=== PATIENT | female | born 1940 | race Caucasian/White ===

== ENCOUNTER → 2024-02-20 07:51 | Outpatient (REF) | payer OTHER, SELFPAY | LOC: RAD 07:51 | PROVIDERS: ATTENDING PHYSICIAN Nurse Practitioner Adult Health; REFERRING PHYSICIAN Internal Medicine Hematology & Oncology | DX: I77.9 Disorder of arteries and arterioles, unspecified (principal); R09.89 Other specified symptoms and signs involving the circulatory and respiratory systems | CPT/HCPCS: 76770; 93880 ==

== ENCOUNTER → 2024-03-09 11:03 | Outpatient (REF) | payer OTHER, SELFPAY ==
[2024-03-09 12:12] LABS: Blood Urea Nitrogen 17 mg/dl (7-17); Calcium 10.3 mg/dl (8.4-10.2); Carbon Dioxide 25 mmol/L (22-30); Chloride 111 mmol/L (98-107); Glucose 45 mg/dl (70-99); Potassium 4.1 mmol/L (3.5-5.1); Sodium 141 mmol/L (135-145); eGFR > 60.00
== END ==
LOC: REG 11:03
PROVIDERS: ATTENDING PHYSICIAN Surgery Vascular Surgery; FAMILY PHYSICIAN Family Medicine
DX: I65.29 Occlusion and stenosis of unspecified carotid artery (principal)
CPT/HCPCS: 36415; 80048

== ENCOUNTER → 2024-03-16 09:44 | Outpatient (REF) | payer OTHER, SELFPAY | LOC: RAD 09:44 | PROVIDERS: ATTENDING PHYSICIAN Surgery Vascular Surgery; FAMILY PHYSICIAN Nurse Practitioner Adult Health | DX: I65.29 Occlusion and stenosis of unspecified carotid artery (principal) | CPT/HCPCS: 70496; 70498; Q9967 ==

== ENCOUNTER → 2024-10-04 08:10 | Outpatient (REF) | payer OTHER, SELFPAY | LOC: RAD 08:10 | PROVIDERS: ATTENDING PHYSICIAN Surgery Vascular Surgery; FAMILY PHYSICIAN Physician Assistant | DX: I73.9 Peripheral vascular disease, unspecified (principal); I65.29 Occlusion and stenosis of unspecified carotid artery | CPT/HCPCS: 93880; 93922; 93925 ==

== ENCOUNTER → 2024-10-14 08:05 | Outpatient (REF) | payer OTHER, SELFPAY | LOC: PET 08:05 | PROVIDERS: ATTENDING PHYSICIAN Internal Medicine Hematology & Oncology | DX: C34.80 Malignant neoplasm of overlapping sites of unspecified bronchus and lung (principal) | CPT/HCPCS: 78815; A9552 ==

== ENCOUNTER → 2025-01-17 07:42 | Outpatient (REF) | payer OTHER, SELFPAY | LOC: HWRAD 07:42 | PROVIDERS: ATTENDING PHYSICIAN Internal Medicine Hematology & Oncology; FAMILY PHYSICIAN Internal Medicine; REFERRING PHYSICIAN Internal Medicine Critical Care Medicine | DX: C34.80 Malignant neoplasm of overlapping sites of unspecified bronchus and lung (principal); C79.31 Secondary malignant neoplasm of brain | CPT/HCPCS: 71250 ==

== ENCOUNTER 2025-03-02 12:12 | Inpatient (IN) | payer OTHER, SELFPAY ==
[2025-03-02] VITALS (67 sets, daily range): BP systolic 41–146; BP diastolic 23–99; PULSE 2–126; BMI 24.2
--- NOTE | 2025-03-02 08:44 | EDRN ---
the pt was received from the waiting room and was 78% on RA, this RN placed the pt on 6L NC and the pt is now 99%, provider Arvin CAPPS notified
[2025-03-02 08:49] LABS: % Basophils 0.7 % (0-2); % Eosinophils 1.2 % (0-6); % Immature Granulocytes 0.2 % (0-0.5); % Lymphocytes 25.1 % (20.5-51.1); % Neutrophils 65.8 % (42.2-75.2); Absolute Basophils 0.1 10^3/uL (0-0.2); Absolute Eosinophils 0.1 10^3/uL (0-0.7); Absolute Lymphocytes 2.2 10^3/uL (1.2-3.4); Absolute Monocytes 0.6 10^3/uL (0.1-0.6); Absolute Neutrophils 5.8 10^3/uL (1.4-6.5); Hematocrit 42.4 % (37.0-47.0); Hemoglobin 14.1 g/dL (12.0-16.0); Mean Corp Hgb Conc. 33.3 g/dL (33.0-37.0); Mean Corpuscular Hgb 31.5 pg (27.0-31.0); Mean Corpuscular Volume 94.6 fL (81.0-99.0); Mean Platelet Volume 10.9 fL (7.4-10.4); Nucleated Red Blood Cells % 0 %; Platelet Count 204 10^3/uL (130-400); Red Blood Cell Count 4.48 10^6/uL (4.20-5.40); Red Cell Dist. Width 14.8 % (11.5-14.5); White Blood Cell Count 8.8 10^3/uL (4.8-10.8)
--- NOTE | 2025-03-02 08:55 | EDRN ---
Arvin CAPPS currently at the pts bedside
[2025-03-02 08:56] LABS: Venous Blood Gas B.E. 0.2 mmol/L (-4 to +4); Venous Blood Gas HCO3 27.3 mmol/L (22-27); Venous Blood Gas O2 Sat % 74.6 %; Venous Blood Gas pCO2 53 mmHg (35-48); Venous Blood Gas pH 7.32 (7.32-7.43); Venous Blood Gas pO2 46 mmHg (30-50)
--- NOTE | 2025-03-02 09:09 | ED.GENMED ---
History of Present Illness
<Som Reyes PA-C - Last Filed: 03/06/25 06:08>
General
Chief Complaint: Breathing Problem
Source: patient
Exam Limitations: none
Time Seen by Provider: 03/02/25 08:27
History of Present Illness
History of Present Illness:
85-year-old female with history of COPD presents with worsening shortness of breath and increased work of breathing over the past 3 to 4 days. She has not been on oxygen but has been forced to use some at home. She denies chest pain. She denies
leg swelling or weight gain. No fever or significant cough. No vomiting. No other complaints at this time
Past History
<GAVIN Carreno Last Filed: 03/06/25 06:08>
Past History
ED Past Medical History: Cancer (lung CA, radiation 2018, chemo early 2019 and has been doing well since.), HTN and Hypercholesterolemia
ED Past Surgical History: None
Social History
Tobacco: Former smoker
Personal:
Living: with family
Family History
Family History: Negative Early CAD
Phy Exam
<GAVIN Carreno Last Filed: 03/06/25 06:08>
Physical Exam
Physical Exam:
General: Well-appearing female with increased work of breathing
HEENT: Normocephalic atraumatic
Heart: Regular rate and rhythm
Lungs: Breath sounds slightly distant and subtle Rales noted at the base
Abdomen is soft nontender nondistended
Extremities: No cyanosis or edema
Skin: Warm no rash
Scores
<GAVIN Carreno Last Filed: 03/06/25 06:08>
Heart Failure Risk
Heart Failure Risk Score: Not Applicable
Course
<GAVIN Carreno Last Filed: 03/06/25 06:08>
Orders/Labs/Results
Orders:
Orders
03/02/25 08:33
CXR2 [CR Chest - 2 Views ] Urgent
Comment:
Reason For Exam: shortness of breath
03/02/25 08:41
EKG [Electrocardiogram (*1)] Urgent
Reason for Study: Shortness of Breath
EKG- Treatment ONCE
03/02/25 08:42
Complete Blood Count/With Diff Urgent
Comprehensive Metabolic Panel Urgent
Direct Bilirubin Urgent
Comment: ADD ON
LDH Urgent
Comment: ADD ON
NT-proBNP Urgent
TSH Reflex To Free T4 Urgent
Comment: ADD ON
Troponin I Urgent
Venous Blood Gas Urgent
%Oxygen/Room Air: 100% on RA
03/02/25 08:58
Ipratropium/Albuterol Sulfate [Duoneb] 3 ml INH R NOW STA
03/02/25 09:28
CT Chest PE Study Urgent
Comment:
Reason For Exam: sob
03/02/25 09:29
Dextrose 50%-Water [Dextrose 50% Syringe] 25 grams IV NOW STA
03/02/25 10:55
Furosemide [Lasix] 100 mg .ROUTE .STK-MED ONE
03/02/25 10:59
Furosemide [Lasix] 60 mg IV NOW STA
03/02/25 11:05
Nitroglycerin 100 mg/250 ml [Nitroglycerin Premix] 100 mg in 250 ml .ROUTE .STK-MED
03/02/25 11:15
Nitroglycerin 100 mg/250 ml [Nitroglycerin Premix] 100 mg in 250 ml IV PER PROTOCOL
Initial dose in mcg/min, then titrate:: 50
Titrate to keep:: Chest Pain Free
Titrate by mcg/min:: 5 mcg/min, may increase by 10 mcg/min if dose > 20 mcg/min
Frequency of titrations (minutes):: every 3-5 minutes
Maximum dose in mcg/min:: 200
Begin to taper infusion when:: Remained at goal for 2hrs
Taper by mcg/min:: 5 mcg/min
Frequency of taper (minutes) if patient maintains goal:: 30
Taper to off?: Yes
If infusion off & no longer maintaining goal:: Contact Provider
03/02/25 11:20
EKG [Electrocardiogram (*1)] Urgent
Reason for Study: Bradycardia / Tachycardia
EKG- Treatment ONCE
CXR [CR Chest Portable - 1 View] Urgent
Comment:
Reason For Exam: post intubation
Reason Study Needs to be Portable: Patient Unstable
03/02/25 11:22
Fentanyl Citrate/Pf [Sublimaze] 100 mcg .ROUTE .STK-MED ONE
Propofol 1,000,000 Mcg/100 ml [Diprivan] 1,000,000 mcg in 100 ml .ROUTE .STK-MED
03/02/25 11:27
Fentanyl Citrate/Pf [Sublimaze] 75 mcg IV NOW STA
03/02/25 11:30
CR Chest Portable - 1 View Urgent
Comment:
Reason For Exam: tube placement
Reason Study Needs to be Portable: Patient Unstable
03/02/25 11:44
Fentanyl Citrate/Pf [Sublimaze] 100 mcg .ROUTE .STK-MED ONE
Fentanyl Citrate/Pf [Sublimaze] 50 mcg IV [id number] PRN
03/02/25 11:45
FentaNYL 1,000 MCG/100 ML [Sublimaze] 1,000 mcg in 100 ml IV PER PROTOCOL
Indication:: Deep Sedation
Begin Infusion:: Now
Goal:: RASS </= -3, BIS 40-60, ventilator synchrony
Maximum dose in mcg/hr:: 300
Continue currently infusing dose and titrate:: Yes
Titration Instructions:: Titrate Q30 min until ventilator synchrony, RASS or BIS goal is met.
Titration Instructions:: If RASS >/= -2 or BIS > 60 or ventilator dyssynchrony:
Titration Instructions:: administer bolus dose and increase infusion by 25 mcg/hr.
Titration Instructions:: Administer analgesia bolus dose(s) & titrate analgesia prior to
Titration Instructions:: adjusting sedation.
Over-sedation Instructions:: if BIS < 40 and pt is synchronous with ventilator, decrease infusion by
Over-sedation Instructions:: 25 mcg/hr every 2 hours until BIS = 40-60.
Over-sedation Instructions:: Do not wean infusion to off if patient is receiving a continuous NMBA or
Over-sedation Instructions:: has received a bolus dose of NMBA within the past 3 hours.
Notify provider:: immediately if pt exhibits signs/symptoms of chest wall rigidity,
Notify provider:: hemodynamic instability, or agitation/pain despite maximum dosing.
Additional Instructions:: Patient MUST be mechanically ventilated.
NORepinephrine 4 MG/250 ML [Levophed] 4 mg in 250 ml IV PER PROTOCOL
Initial dose in mcg/min, then titrate:: 5
Titrate to keep:: MAP > 65 mmHg
Titrate by mcg/min:: 1-2 mcg/min
Frequency of titrations (minutes):: 5
Maximum dose in ICU in mcg/min:: 30
Maximum dose in IMU in mcg/min:: 8
Maximum dose in IVU in mcg/min:: 4
Begin to taper infusion when:: Remained at goal for 4hrs
Taper by mcg/min:: 1-2 mcg/min
Frequency of taper (minutes) if patient maintains goal:: 30
Taper to off?: Yes
If infusion off & no longer maintaining goal:: Contact Provider
03/02/25 11:47
CARDIOLOGY CONSULT Urgent
Consulting Provider: Elijah Murray
Was physician already notified: Yes
Reason for consult: CHF
Milling Planer Operator Consult Urgent
Consulting Provider: Ilan Hayes
Was physician already notified: Yes
Reason for consult: acute respiratory failure
03/02/25 11:49
FentaNYL 1,000 MCG/100 ML [Sublimaze] 1,000 mcg in 100 ml .ROUTE .STK-MED
03/02/25 11:58
Echo 2D MMode Color/Doppler Stat
Reason for Study: cardiogenic shock
Aspirin 300 mg RECTAL NOW STA
Heparin Protocol- PTT Orders As Directed
PTT per Heparin protocol: -Obtain CBC and baseline PTT - if not already collected.
-Obtain PTT 6 hours from start of infusion. Then, every 6 hours until 2 consecutive
PTT's are therapeutic. Then, PTT Daily.
-With each rate change, obtain PTT every 6 hours until 2 consecutive PTT's are
therapeutic. Then, PTT Daily.
03/02/25 11:59
Code Status As Directed
Resuscitation Status: Full Code
Dextrose 50%-Water [Dextrose 50% Syringe] 12.5 grams IV [id number] PRN
Glucagon [GlucaGen] 1 mg IM PRN PRN
03/02/25 12:00
HF DIETARY CONSULT Routine
Dextrose 10%/Water 1000 ml [D10w] 1,000 ml IV 30 mls/hr
Fentanyl Citrate/Pf [Sublimaze] 50 mcg IV [id number] PRN
Heparin 18774 Units/250 ml 25,000 units in 250 ml IV PER PROTOCOL
Weight to be used for heparin protocol in kilograms (kg):: 58.06
Protocol:: Cardiac Tx/Acute Coronary
PTT Goal Range to be used:: PTT 73 to 111 seconds
Order type:: Initial
INITIAL Infusion Dose (UNITS/KG/hr) & then follow protocol:: 12 units/kg/hr
Infusion Dose in UNITS/hr & then follow protocol (UNITS/hr):: 700
INFUSION RATE in mL/hr & then follow protocol (mL/hr):: 7
PTT less than or equal to 64 seconds:: Increase rate by 200 units/hr (+ 2 mL/hr)
PTT 64.1 to 72.9 seconds:: Increase rate by 100 units/hr (+ 1 mL/hr)
PTT 73 to 111 seconds:: Target Range. No change in rate.
PTT 111.1 to 130.9 seconds:: Decrease rate by 100 units/hr (- 1 mL/hr)
PTT 131 to 199.9 seconds:: HOLD for 1 hr. Then decrease rate by 200 units/hr (- 2 mL/hr)
PTT greater than or equal to 200 seconds:: HOLD for 2 hrs & Notify Provider. Then decrease by 200 units/hr (-
2 mL/hr)
Lab follow-up:: Each change, PTT q6h until 2 consecutive are therapeutic. Then PTT
daily.
Propofol 1,000,000 Mcg/100 ml [Diprivan] 1,000,000 mcg in 100 ml IV PER PROTOCOL
03/02/25 12:02
Admit/Transfer Patient As Directed
Co-Sign Provider:
Level of Care: Inpatient admission
Assign to:: ICU
Physician / Group: Hospitalist
Diagnosis: CHF, NSTEMI
Reason for Hospitalization: CHF, NSTEMI
Expected length of stay greater than two midnights?: Yes
ELOS- Estimated Length of Stay in days: 5
I certify the patient meets the requirements for IP care: Yes
Complete Blood Count/No Diff Urgent
Comment: Obtain baseline before beginning heparin infusion if not already collected
Glycohemoglobin (HgbA1c) Urgent
PTT Urgent
Comment: Obtain baseline before beginning heparin infusion if not already collected
Prothrombin Time Urgent
Comment: ADD ON
Reticulocyte Count Urgent
Comment: ADD ON
PRN Pain Medication Management As Directed
May give lesser potent ordered pain med per pt: Yes
preference::
Protocol:: Medication orders for pain may be administered in a
manner that supports deferring to patient preference
when the pt is:
- Requesting an ordered lesser potent pain medication.
Least to most potent pain medications are defined
as: acetaminophen < NSAID < tramadol < opioids
(morphine, oxycodone, hydromorphone).
- Requesting a lesser dose of the same medication IF
ORDERED.
- Requesting a less intrusive route of administration
if both routes are prescribed by the provider (PO <
IV).
03/02/25 12:07
MethylPREDNISolone PF [Solu-Medrol Pf] 125 mg IV NOW STA
03/02/25 14:00
Lactic Acid Q6H
Troponin I Q6H
Comment: at admission & every 6 hours x 2 (3 total), ECG to be done with each level
03/02/25 16:00
Furosemide [Lasix] 40 mg IV BID AT 0800,1600
03/02/25 16:30
Insulin Aspart Corrective Low [Novolog Flexpen-Low Resistance] See Protocol SC AC
03/02/25 17:55
Troponin I Q6H
Comment: at admission & every 6 hours x 2 (3 total), ECG to be done with each level
03/02/25 20:00
Atorvastatin [Lipitor] 40 mg TUBE DAILY@1999
03/03/25 00:18
Troponin I Q6H
Comment: at admission & every 6 hours x 2 (3 total), ECG to be done with each level
03/03/25 03:12
Cardiovascular Evaluation IN AM
Complete Blood Count/With Diff IN AM
Hepatitis B Core Ab, Total IN AM
Hepatitis B Surface Antibody IN AM
Hepatitis B Surface Antigen IN AM
Hepatitis C Antibody IN AM
03/03/25 08:00
Aspirin Chewable [Low Strength Aspirin] 81 mg TUBE DAILY
Abnormal Lab Results
03/02/25 03/02/25
08:42 12:02
RBC 4.17 L 10^6/uL
(4.20-5.40)
MCH 31.5 H pg 31.2 H pg
(27.0-31.0) (27.0-31.0)
MCHC 32.8 L g/dL
(33.0-37.0)
RDW 14.8 H % 15.0 H %
(11.5-14.5) (11.5-14.5)
MPV 10.9 H fL 10.8 H fL
(7.4-10.4) (7.4-10.4)
VBG pCO2 53 H mmHg
(35-48)
VBG HCO3 27.3 H mmol/L
(22-27)
Sodium 146 H mmol/L
(135-145)
Chloride 109 H mmol/L
(98-107)
BUN 31 H mg/dl
(7-17)
Glucose 51 L* mg/dl
(70-99)
Total Bilirubin 2.3 H mg/dl
(0.2-1.3)
AST 78 H U/L
(14-36)
Lactate Dehydrogenase 361 H U/L
(120-246)
Troponin I 5.170 H* ng/ml
03/02/25 12:02
03/02/25 08:42
Vital Signs
Initial and Last Documented VS:
Initial Vital Signs
Temp Pulse Resp BP Pulse Ox
97.8 F 102 20 146/59 97
03/02/25 08:07 03/02/25 08:07 03/02/25 08:07 03/02/25 08:07 03/02/25 08:07
Last Documented Vital Signs
Temp Pulse Resp BP Pulse Ox
99.5 F 81 15 128/52 99
03/04/25 12:01 03/04/25 11:00 03/04/25 11:00 03/04/25 10:06 03/04/25 11:00
<DO Pancho Ellis Last Filed: 03/02/25 11:25>
Orders/Labs/Results
Orders:
Orders
03/02/25 08:33
CXR2 [CR Chest - 2 Views ] Urgent
Comment:
Reason For Exam: shortness of breath
03/02/25 08:41
EKG [Electrocardiogram (*1)] Urgent
Reason for Study: Shortness of Breath
EKG- Treatment ONCE
03/02/25 08:42
Complete Blood Count/With Diff Urgent
Comprehensive Metabolic Panel Urgent
Direct Bilirubin Urgent
Comment: ADD ON
LDH Urgent
Comment: ADD ON
NT-proBNP Urgent
TSH Reflex To Free T4 Urgent
Comment: ADD ON
Troponin I Urgent
Venous Blood Gas Urgent
%Oxygen/Room Air: 100% on RA
03/02/25 08:58
Ipratropium/Albuterol Sulfate [Duoneb] 3 ml INH R NOW STA
03/02/25 09:28
CT Chest PE Study Urgent
Comment:
Reason For Exam: sob
03/02/25 09:29
Dextrose 50%-Water [Dextrose 50% Syringe] 25 grams IV NOW STA
03/02/25 10:55
Furosemide [Lasix] 100 mg .ROUTE .STK-MED ONE
03/02/25 10:59
Furosemide [Lasix] 60 mg IV NOW STA
03/02/25 11:05
Nitroglycerin 100 mg/250 ml [Nitroglycerin Premix] 100 mg in 250 ml .ROUTE .STK-MED
03/02/25 11:15
Nitroglycerin 100 mg/250 ml [Nitroglycerin Premix] 100 mg in 250 ml IV PER PROTOCOL
Initial dose in mcg/min, then titrate:: 50
Titrate to keep:: Chest Pain Free
Titrate by mcg/min:: 5 mcg/min, may increase by 10 mcg/min if dose > 20 mcg/min
Frequency of titrations (minutes):: every 3-5 minutes
Maximum dose in mcg/min:: 200
Begin to taper infusion when:: Remained at goal for 2hrs
Taper by mcg/min:: 5 mcg/min
Frequency of taper (minutes) if patient maintains goal:: 30
Taper to off?: Yes
If infusion off & no longer maintaining goal:: Contact Provider
03/02/25 11:20
EKG [Electrocardiogram (*1)] Urgent
Reason for Study: Bradycardia / Tachycardia
EKG- Treatment ONCE
CXR [CR Chest Portable - 1 View] Urgent
Comment:
Reason For Exam: post intubation
Reason Study Needs to be Portable: Patient Unstable
03/02/25 11:22
Fentanyl Citrate/Pf [Sublimaze] 100 mcg .ROUTE .STK-MED ONE
Propofol 1,000,000 Mcg/100 ml [Diprivan] 1,000,000 mcg in 100 ml .ROUTE .STK-MED
03/02/25 11:27
Fentanyl Citrate/Pf [Sublimaze] 75 mcg IV NOW STA
03/02/25 11:30
CR Chest Portable - 1 View Urgent
Comment:
Reason For Exam: tube placement
Reason Study Needs to be Portable: Patient Unstable
03/02/25 11:44
Fentanyl Citrate/Pf [Sublimaze] 100 mcg .ROUTE .STK-MED ONE
Fentanyl Citrate/Pf [Sublimaze] 50 mcg IV [id number] PRN
03/02/25 11:45
FentaNYL 1,000 MCG/100 ML [Sublimaze] 1,000 mcg in 100 ml IV PER PROTOCOL
Indication:: Deep Sedation
Begin Infusion:: Now
Goal:: RASS </= -3, BIS 40-60, ventilator synchrony
Maximum dose in mcg/hr:: 300
Continue currently infusing dose and titrate:: Yes
Titration Instructions:: Titrate Q30 min until ventilator synchrony, RASS or BIS goal is met.
Titration Instructions:: If RASS >/= -2 or BIS > 60 or ventilator dyssynchrony:
Titration Instructions:: administer bolus dose and increase infusion by 25 mcg/hr.
Titration Instructions:: Administer analgesia bolus dose(s) & titrate analgesia prior to
Titration Instructions:: adjusting sedation.
Over-sedation Instructions:: if BIS < 40 and pt is synchronous with ventilator, decrease infusion by
Over-sedation Instructions:: 25 mcg/hr every 2 hours until BIS = 40-60.
Over-sedation Instructions:: Do not wean infusion to off if patient is receiving a continuous NMBA or
Over-sedation Instructions:: has received a bolus dose of NMBA within the past 3 hours.
Notify provider:: immediately if pt exhibits signs/symptoms of chest wall rigidity,
Notify provider:: hemodynamic instability, or agitation/pain despite maximum dosing.
Additional Instructions:: Patient MUST be mechanically ventilated.
NORepinephrine 4 MG/250 ML [Levophed] 4 mg in 250 ml IV PER PROTOCOL
Initial dose in mcg/min, then titrate:: 5
Titrate to keep:: MAP > 65 mmHg
Titrate by mcg/min:: 1-2 mcg/min
Frequency of titrations (minutes):: 5
Maximum dose in ICU in mcg/min:: 30
Maximum dose in IMU in mcg/min:: 8
Maximum dose in IVU in mcg/min:: 4
Begin to taper infusion when:: Remained at goal for 4hrs
Taper by mcg/min:: 1-2 mcg/min
Frequency of taper (minutes) if patient maintains goal:: 30
Taper to off?: Yes
If infusion off & no longer maintaining goal:: Contact Provider
03/02/25 11:47
CARDIOLOGY CONSULT Urgent
Consulting Provider: Elijah Murray
Was physician already notified: Yes
Reason for consult: CHF
Milling Planer Operator Consult Urgent
Consulting Provider: Ilan Hayes
Was physician already notified: Yes
Reason for consult: acute respiratory failure
03/02/25 11:49
FentaNYL 1,000 MCG/100 ML [Sublimaze] 1,000 mcg in 100 ml .ROUTE .STK-MED
03/02/25 11:58
Echo 2D MMode Color/Doppler Stat
Reason for Study: cardiogenic shock
Aspirin 300 mg RECTAL NOW STA
Heparin Protocol- PTT Orders As Directed
PTT per Heparin protocol: -Obtain CBC and baseline PTT - if not already collected.
-Obtain PTT 6 hours from start of infusion. Then, every 6 hours until 2 consecutive
PTT's are therapeutic. Then, PTT Daily.
-With each rate change, obtain PTT every 6 hours until 2 consecutive PTT's are
therapeutic. Then, PTT Daily.
03/02/25 11:59
Code Status As Directed
Resuscitation Status: Full Code
Dextrose 50%-Water [Dextrose 50% Syringe] 12.5 grams IV [id number] PRN
Glucagon [GlucaGen] 1 mg IM PRN PRN
03/02/25 12:00
HF DIETARY CONSULT Routine
Dextrose 10%/Water 1000 ml [D10w] 1,000 ml IV 30 mls/hr
Fentanyl Citrate/Pf [Sublimaze] 50 mcg IV [id number] PRN
Heparin 95388 Units/250 ml 25,000 units in 250 ml IV PER PROTOCOL
Weight to be used for heparin protocol in kilograms (kg):: 58.06
Protocol:: Cardiac Tx/Acute Coronary
PTT Goal Range to be used:: PTT 73 to 111 seconds
Order type:: Initial
INITIAL Infusion Dose (UNITS/KG/hr) & then follow protocol:: 12 units/kg/hr
Infusion Dose in UNITS/hr & then follow protocol (UNITS/hr):: 700
INFUSION RATE in mL/hr & then follow protocol (mL/hr):: 7
PTT less than or equal to 64 seconds:: Increase rate by 200 units/hr (+ 2 mL/hr)
PTT 64.1 to 72.9 seconds:: Increase rate by 100 units/hr (+ 1 mL/hr)
PTT 73 to 111 seconds:: Target Range. No change in rate.
PTT 111.1 to 130.9 seconds:: Decrease rate by 100 units/hr (- 1 mL/hr)
PTT 131 to 199.9 seconds:: HOLD for 1 hr. Then decrease rate by 200 units/hr (- 2 mL/hr)
PTT greater than or equal to 200 seconds:: HOLD for 2 hrs & Notify Provider. Then decrease by 200 units/hr (-
2 mL/hr)
Lab follow-up:: Each change, PTT q6h until 2 consecutive are therapeutic. Then PTT
daily.
Propofol 1,000,000 Mcg/100 ml [Diprivan] 1,000,000 mcg in 100 ml IV PER PROTOCOL
03/02/25 12:02
Admit/Transfer Patient As Directed
Co-Sign Provider:
Level of Care: Inpatient admission
Assign to:: ICU
Physician / Group: Hospitalist
Diagnosis: CHF, NSTEMI
Reason for Hospitalization: CHF, NSTEMI
Expected length of stay greater than two midnights?: Yes
ELOS- Estimated Length of Stay in days: 5
I certify the patient meets the requirements for IP care: Yes
Complete Blood Count/No Diff Urgent
Comment: Obtain baseline before beginning heparin infusion if not already collected
Glycohemoglobin (HgbA1c) Urgent
PTT Urgent
Comment: Obtain baseline before beginning heparin infusion if not already collected
Prothrombin Time Urgent
Comment: ADD ON
Reticulocyte Count Urgent
Comment: ADD ON
PRN Pain Medication Management As Directed
May give lesser potent ordered pain med per pt: Yes
preference::
Protocol:: Medication orders for pain may be administered in a
manner that supports deferring to patient preference
when the pt is:
- Requesting an ordered lesser potent pain medication.
Least to most potent pain medications are defined
as: acetaminophen < NSAID < tramadol < opioids
(morphine, oxycodone, hydromorphone).
- Requesting a lesser dose of the same medication IF
ORDERED.
- Requesting a less intrusive route of administration
if both routes are prescribed by the provider (PO <
IV).
03/02/25 12:07
MethylPREDNISolone PF [Solu-Medrol Pf] 125 mg IV NOW STA
03/02/25 14:00
Lactic Acid Q6H
Troponin I Q6H
Comment: at admission & every 6 hours x 2 (3 total), ECG to be done with each level
03/02/25 16:00
Furosemide [Lasix] 40 mg IV BID AT 0800,1600
03/02/25 16:30
Insulin Aspart Corrective Low [Novolog Flexpen-Low Resistance] See Protocol SC AC
03/02/25 17:55
Troponin I Q6H
Comment: at admission & every 6 hours x 2 (3 total), ECG to be done with each level
03/02/25 20:00
Atorvastatin [Lipitor] 40 mg TUBE DAILY@1999
03/03/25 00:18
Troponin I Q6H
Comment: at admission & every 6 hours x 2 (3 total), ECG to be done with each level
03/03/25 03:12
Cardiovascular Evaluation IN AM
Complete Blood Count/With Diff IN AM
Hepatitis B Core Ab, Total IN AM
Hepatitis B Surface Antibody IN AM
Hepatitis B Surface Antigen IN AM
Hepatitis C Antibody IN AM
03/03/25 08:00
Aspirin Chewable [Low Strength Aspirin] 81 mg TUBE DAILY
Abnormal Lab Results
03/02/25 03/02/25
08:42 12:02
RBC 4.17 L 10^6/uL
(4.20-5.40)
MCH 31.5 H pg 31.2 H pg
(27.0-31.0) (27.0-31.0)
MCHC 32.8 L g/dL
(33.0-37.0)
RDW 14.8 H % 15.0 H %
(11.5-14.5) (11.5-14.5)
MPV 10.9 H fL 10.8 H fL
(7.4-10.4) (7.4-10.4)
VBG pCO2 53 H mmHg
(35-48)
VBG HCO3 27.3 H mmol/L
(22-27)
Sodium 146 H mmol/L
(135-145)
Chloride 109 H mmol/L
(98-107)
BUN 31 H mg/dl
(7-17)
Glucose 51 L* mg/dl
(70-99)
Total Bilirubin 2.3 H mg/dl
(0.2-1.3)
AST 78 H U/L
(14-36)
Lactate Dehydrogenase 361 H U/L
(120-246)
Troponin I 5.170 H* ng/ml
03/02/25 12:02
03/02/25 08:42
Vital Signs
Initial and Last Documented VS:
Initial Vital Signs
Temp Pulse Resp BP Pulse Ox
97.8 F 102 20 146/59 97
03/02/25 08:07 03/02/25 08:07 03/02/25 08:07 03/02/25 08:07 03/02/25 08:07
Last Documented Vital Signs
Temp Pulse Resp BP Pulse Ox
99.5 F 81 15 128/52 99
03/04/25 12:01 03/04/25 11:00 03/04/25 11:00 03/04/25 10:06 03/04/25 11:00
<Som Reyes PA-C - Last Filed: 03/06/25 06:08>
MDM/Problems Addressed
Differential Diagnosis Includes:
Shortness of breath. Consider COPD exacerbation versus pneumonia versus CHF. Patient does not have chest pain. Do not suspect PE or dissection
Patient does not appear volume overloaded but BNP and chest x-ray is pending. DuoNeb ordered.
Patient currently on 6 L of nasal cannula oxygen
<Maureen Villa DO - Last Filed: 03/02/25 11:25>
*Critical Care Note
Total Time (30-74mins, 75-104mins- exclusive of procedures): 55
comment:
The high probability of a clinically significant, sudden or life threatening deterioration of the cardiorespiratory system(s) required my full and direct attention, intervention and personal management. The aggregate critical care time was 55
minutes. This time is in addition to time spent performing reported procedures but includes the following:
[x] Data Review and interpretation
[x] Patient assessment and monitoring of vital signs
[x] Documentation
[x] Medication orders and management
<Som Reyes PA-C - Last Filed: 03/06/25 06:08>
Update Note
Update Note:
Patient received chest x-ray which showed small pleural effusions however labs returned with elevated BNP and troponin. Given these lab abnormalities and history of cancer PE study was ordered. Patient received chest CAT scan and shortly after
returning from CAT scan she became significantly tachypneic and was in respiratory distress. Respiratory therapy was consulted for BiPAP. BiPAP was placed at 10/5. Shortly after this nitro drip was started given the ongoing tachypnea and
respiratory distress however patient's oxygen saturations were dropping despite these interventions. The decision was made to intubate. Rapid sequence intubation was directed by emergency room attending. Patient is then intubated using 7.5 Maur[place]
ET tube. Nitroglycerin infusion was stopped prior to intubation. chest x-ray after tube was placed demonstrated the tube was in the right mainstem. This was then backed up 3 cm and repeat chest x-ray performed which shows ET tube in adequate
position.
ED Attending Note
<Som Reyes PA-C - Last Filed: 03/06/25 06:08>
-
Portions of this chart may have been created with voice recognition software.� Occasional wrong word or��sound alike� substitutions may have occurred due to the inherent limitations of voice recognition software.
<Maureen Villa DO - Last Filed: 03/02/25 11:25>
ED Attending Note
Patient seen and examined by attending physician: Yes
I performed the substantive portion of visit, reviewed & personally made and approve the management plan that is documented in note by myself or JUHI.: Yes
I performed a history and physical exam of patient and discussed management with resident, I reviewed resident's note and agree with documented findings and plan of care.: Yes
ED Attending Note:
85-year-old female with history of COPD and prior history of lung CA presenting to the emergency department for shortness of breath. Patient reports difficulty breathing for the past 5 days, which started after doing some yard work. Shortness of
breath with exertion. Denies any associated chest pain. Denies cough or fever. Does report that she has oxygen at home however has not had to use it for several years, is not oxygen dependent. Reports history of lung cancer, however notes CT
and December, was reportedly clear. Vital signs on arrival significant for hypoxia, on 5 to 6 L O2.
On exam patient is resting comfortably comfortable on oxygen supplementation. Scant crackles at the bases, otherwise lungs clear to auscultation. EKG obtained on arrival, shows some left axis deviation, otherwise no significant ischemia. Patient
initially seen by JUHI prior to my assessment with laboratory analysis drawn. Markedly elevated troponin. On my assessment, continues to decline any chest pain. At this time concern for ischemic demand. Chest x-ray shows some lung scarring and
pleural effusion. Given history of CAD with presenting hypoxia, primary concern is for PE. Plan for CT chest imaging.
11:20 -patient clinically deteriorated with increased work of breathing. CT preliminarily shows pleural effusions, concern for volume overload, possible CHF. Concern for flash pulmonary edema given present clinical picture. Attempted to try
BiPAP, however patient not tolerating with sats dropping. Did discuss with patient intubation, patient is okay with intubation. Patient subsequently intubated without event. Please see procedure note. Patient administered Lasix, now on nitro
drip. Plan for ICU admission
Discharge Plan
Departure
Patient Disposition: Admit
Date of Disposition: 03/02/25
Time of Disposition: 11:48
Presentation/result/management discussed w/ accepting MD/DO: Hospitalist
Discharge Problem:
Acute respiratory distress
Interventions
Interventions:
*General Assessment Last Done: 03/02/25 08:07
*Neglect/Abuse Screening Last Done: 03/02/25 08:45
*ED- Fall Risk Assessment Last Done: 03/02/25 08:45
*Nursing Disposition Last Done: 03/02/25 12:43
ED- Cardiac Assessment Last Done: 03/02/25 08:45
ED- Pulmonary Assessment Last Done: 03/02/25 08:45
Discharge Date and Time
Discharge Date/Time: 03/02/25 12:44
[2025-03-02 09:26] LABS: ALT (SGPT) 25 U/L (0-35); AST (SGOT) 78 U/L (14-36); Albumin 4.5 g/dl (3.5-5.0); Alkaline Phosphatase 60 U/L (38-126); Blood Urea Nitrogen 31 mg/dl (7-17); Calcium 10.2 mg/dl (8.4-10.2); Carbon Dioxide 26 mmol/L (22-30); Chloride 109 mmol/L (98-107); Estimated Creatinine Clearance 32 ml/min; Glucose 51 mg/dl (70-99); NT-proBNP 15300 pg/ml; Potassium 4.3 mmol/L (3.5-5.1); Sodium 146 mmol/L (135-145); Total Bilirubin 2.3 mg/dl (0.2-1.3)
--- NOTE | 2025-03-02 09:27 | EDRN ---
provider Arvin CAPPS notified of the pts Trop and BNP
[2025-03-02] MEDS: DEXTROSE 50% SYRINGE 25 GRAMS IV (09:36)
[2025-03-02] MEDS: DUONEB 3 ML INH ×2 (09:37→20:52)
--- NOTE | 2025-03-02 09:40 | EDRN ---
Dr. Wilder currently at the pts bedside
--- NOTE | 2025-03-02 10:52 | EDRN ---
the pt pressed the call ann and this RN entered the pts room, the pt is tachypnic at 34 and HR is 127 and the pt states I can't breathe, this RN notified Arvin CAPPS and notified respiratory
[2025-03-02] MEDS: LASIX 60 MG IV (11:04)
--- NOTE | 2025-03-02 11:07 | EDRN ---
this RN explained the use of the pure wick to the pt and the pt verbally agreed, this RN explained to the pt that lasix was administered and that she might have to urinate, pure wick in place and hooked to suction
--- NOTE | 2025-03-02 11:07 | EDRN ---
Arvin CAPPS was brought to the pts bedside and respiratory came as well, the pt was placed on bipap 10/5 10L, Dr. Villa at the pts bedside, the pt was given Lasix 60mg IV
[2025-03-02] MEDS: NITROGLYCERIN PREMIX 250 IV (11:10)
--- NOTE | 2025-03-02 11:10 | EDRN ---
nitro started per Arvin wiggins at 50mcg/min, the pts Sp02 dropped to 88% on Bipap, provider notified and respiratory notified
--- NOTE | 2025-03-02 11:14 | EDRN ---
Arvin Aguilar, Dr. Villa, respiratory and multiple RN's at the pts bedside preparing to intubate
--- NOTE | 2025-03-02 11:15 | EDRN ---
nitro gtt turned off per Dr. Villa
--- NOTE | 2025-03-02 11:18 | EDRN ---
20mg Etomidate administered
--- NOTE | 2025-03-02 11:18 | EDRN ---
pharmacy at the bedside
--- NOTE | 2025-03-02 11:18 | EDRN ---
60mg succinate administered
--- NOTE | 2025-03-02 11:19 | EDRN ---
Dr. Villa and Arvin CAPPS at the pts bedside intubating the pt, dentures were removed prior
--- NOTE | 2025-03-02 11:20 | EDRN ---
positive color change, 23 at the lip to the right
--- NOTE | 2025-03-02 11:27 | PHANOTE ---
Med Rec Note:
Pt intubated prior to interview. Home med list compiled from Dr Barker and GERONIMO.
[2025-03-02] MEDS: DIPRIVAN 100 IV ×3 (11:30→23:11)
[2025-03-02] MEDS: SUBLIMAZE 75 MCG IV (11:31)
--- NOTE | 2025-03-02 11:33 | EDRN ---
this RN notified the provider of the pts hypotension at 84/54 (65), per the provider Dr. Villa Levophed will be ordered however per the provider levophed is not to be started yet
[2025-03-02] MEDS: SUBLIMAZE 50 MCG IV ×4 (11:47→20:37)
[2025-03-02] MEDS: SUBLIMAZE 100 IV (11:50)
[2025-03-02] MEDS: LEVOPHED 250 IV ×2 (12:05→16:10)
[2025-03-02] MEDS: ASPIRIN 300 MG RECTAL (12:07)
[2025-03-02] MEDS: HEPARIN 25000 UNITS/250 ML IV (12:14)
--- NOTE | 2025-03-02 12:16 | EDRN ---
this RN called verbal report to the receiving ICU nurse Noam DACOSTA
[2025-03-02 12:24] LABS: Hematocrit 39.6 % (37.0-47.0); Mean Corp Hgb Conc. 32.8 g/dL (33.0-37.0); Mean Corpuscular Hgb 31.2 pg (27.0-31.0); Mean Platelet Volume 10.8 fL (7.4-10.4); Platelet Count 190 10^3/uL (130-400); Red Blood Cell Count 4.17 10^6/uL (4.20-5.40); White Blood Cell Count 8.5 10^3/uL (4.8-10.8)
[2025-03-02 12:29] LABS: APTT 29.1 Sec (23.4-35.0)
--- NOTE | 2025-03-02 12:29 | HPS.HSE ---
Family Physician
-
Family Physician: Piyush Carlson
Chief Complaint
-
SOB
History of Present Illness
85yo F with PMHx of CAD, HFmrEF, pulmonary HTN, gout, COPD, DM, HTN, lung CA lst chemo 2 years ago, Hx of brain lesions s/p Cyberknife (PET in Oct 2024 - No suspicious FDG-avid lesions.) brought with gradual worsening of SOB for few days, after CT
developed rapidly progressive hypoxia unresponsive to NIV in ED and was intubated on 03/02/25. Patient is sedated so further Hx obtained from the records and family.
As per - patient could not breath for past few days with worsening malaise and in the morning of admission almost fainted. Started just 3 days before admission. Patient was using O2 machine at home since she was SOB with minimal excertion.
No chest pain and no signs of respiratory infection.
In ED she denies chest pain. She denies leg swelling or weight gain. No fever or significant cough. No vomiting
Medical History
Past Medical History
Past Medical History: Reports Other
Additional Past Medical History:
See HPI
Past Surgical History: Reports Other
Additional Past Surgical History:
See HPI
Social History
Tobacco: Former Smoker
Alcohol: Former
Drug: None
Personal:
Family History
Family History: Not pertinent
Allergies / Home Medications
Allergies reflects when Allergies were last updated in [employer]
Home Medications with original date entered in [employer]
Allergy/Medication List:
Allergies
Allergy/AdvReac Type Severity Reaction Status Date / Time
sulfamethoxazole Allergy Unknown Verified 03/02/25 08:13
[From Bactrim]
trimethoprim [From Bactrim] Allergy Unknown Verified 03/02/25 08:13
Home Medications
aspirin 81 mg tablet,delayed release 81 mg PO DAILY@1999 Blood clot prevention/tx 11/19/18
atorvastatin 40 mg tablet 40 mg PO DAILY@1999 High cholesterol 11/19/18
allopurinol 100 mg tablet 100 mg PO DAILY ##30 05/22/19
furosemide 20 mg tablet 20 mg PO DAILY Fluid retention/Swelling 12/14/19
insulin aspart U-100 100 unit/mL (3 mL) subcutaneous pen (Novolog FlexPen U-100 Insulin aspart) 6 units SC BID Diabetes 12/09/20
insulin glargine 100 unit/mL (3 mL) subcutaneous pen (Lantus Solostar U-100 Insulin) 8 units SC HS Diabetes 12/09/20
fluticasone 250 mcg-salmeterol 50 mcg/dose blistr powdr for inhalation (Wixela Inhub) 1 inh inhalation R BID Congestion 12/31/21
albuterol sulfate 0.63 mg/3 mL solution for nebulization 0.63 mg inhalation R QIDPRN PRN sob/wheezing 03/02/25
cholecalciferol (vitamin D3) 50 mcg (2,000 unit) tablet 50 mcg PO DAILY 03/02/25
lisinopril 40 mg tablet 40 mg PO DAILY 03/02/25
Review of Systems
-
Unable to obtain full review of systems at this time due to: Patient Intubation
Physical Exam
Vital Signs
Vital Signs
Temp Pulse Resp BP Pulse Ox
98.5 F 156 14 95/79 95
03/02/25 08:45 03/02/25 11:55 03/02/25 11:55 03/02/25 11:55 03/02/25 11:55
Physical Exam
General: Intubated
HEENT: NormoCephalic, Anicteric and Moist mucous membranes
Respiratory: Clear; No Wheezes, Rhonchi or Crackles
Cardiac: Irregular Rhythm and Tachycardia; No Murmur
GI: Soft, Non Tender, Non Distended and Normal Bowel Sounds
Musculoskeletal: No Clubbing, No Cyanosis and No Edema
Skin: Warm; No Dry, Jaundice or Ulcers
Neuro: Sedated
Psych: Calm
Laboratory Results
-
03/02/25 12:02
03/02/25 08:42
Laboratory Results
Total Bilirubin 2.3 mg/dl (0.2-1.3) H 03/02/25 08:42
AST 78 U/L (14-36) H 03/02/25 08:42
ALT 25 U/L (0-35) 03/02/25 08:42
Alkaline Phosphatase 60 U/L (38-126) 03/02/25 08:42
Troponin I 5.170 ng/ml H* 03/02/25 08:42
Data Reviewed
-
CT Scan: Report Reviewed by me
Lab Data: Labs Reviewed by me
Impression/Plan
-
A/P:
#NSTEMI with PMHx of CAD with
#Acute hypoxic hypercapnic respiratory failure 2/2 acute on chronic HFmrEF exacerbation cannot exclude allergic reaction to the contrast
#New onset Afib with RVR
No obvious ST elevation on EKG
serial troponin
ASA load and daily
lipitor
BB when BP improves
Cardiology consult
Echo, lasix, follow Cr and electrolytes
Vent mgmt as per [employer]
As per cath in 2018: Stable coronary anatomy with chronic total occlusion of a large obtuse marginal branch, Mildly reduced LVEF visually estimated at 40-45%
#Shock, concerned for cardiogenic
Levophed
Cardiology
ICU
CTA chest without pulmonary embolism or pneumonia
check UA, but afebrile and no WBC elvation - no signs of septic component at this time
follow lactate
#Minimal bilirubinemia
#minimal AST elevation
check direct Bili, LDH, retics, hepatitis profile
follow LFT
#DM type 2 on insulin with hypoglycemia on admission
D10 low rate
Insulin As needed, short acting only
check TSH
#COPD, unclear if in exacerbation
SInce also concern for pulmonary edema after the contrast (allergic reaction?) - steroids
cont bronchodilators
#HLD
#gout
#Essential HTN
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
cont current meds when acute issue resolve and BP improves
DVT ppx on hep drip
full code
I have spent at least 78min of critical care time admitting the patient, reviewing chart, test results, communication with consultants and providing direct patient care
[2025-03-02 12:46] LABS: Reticulocyte Count 1.3 % (0.4-2.8)
--- NOTE | 2025-03-02 13:06 | CON.INTV ---
Addendum entered and electronically signed by Ilan Hayes MD 03/02/25 14:00:
Reviewed with pharmacy
Patient received methylprednisone 125 mg x 1, rectal aspirin 300 mg
Did not receive antibiotics
Will empirically start antibiotics
Start vasopressin, attempt to wean off norepinephrine given tachycardia
Await echocardiogram
Original Note:
Consultation
Consultation Request
Date/Time Consultation Requested: 03/02
Date/Time Consultation Performed: 03/02
Reason for Consultation: Critical care
Medical History
-
History of Present Illness:
History is obtained from both inpatient and outpatient records, ED records. Attempted to contact by phone, no answer. 85-year-old female with history of COPD, lung cancer with radiation and chemotherapy in the past, recently seen by
Jason in the office in the last month, was doing well at that time, now presents with 3 days of increased shortness of breath. Patient using oxygen therapy more often at home. Per ED records, no history of chest pain, leg swelling or weight
changes, fevers, cough, emesis, hemoptysis. Upon arrival to [facility], afebrile, pulse 102, breathing at 20, blood pressure 146/59, 97%. Patient had EKG, chest x-ray. Received nebulized therapy. CT chest was obtained to rule out PE.
There is no evidence of PE. Patient then received IV dextrose for hypoglycemia, Lasix therapy, then placed on BiPAP for increased respiratory distress. She was also given nitroglycerin. Due to increased respiratory distress, she was intubated in
the ED without difficulty. She then developed hypotension requiring initiation of norepinephrine. Cannot confirm whether patient received steroids although they were ordered. Patient admitted to ICU for further management
Upon arrival to ICU, heart rate 160s, blood pressure 140s/80s, patient agitated, dyssynchronous with the ventilator on volume-cycled ventilation
Chest exam was clear per my exam
Patient given propofol, changed to ASV, norepinephrine being weaned off. Patient appears to be more comfortable
.
PMH: Hypertension, hyperlipidemia, history of pneumonia, lung cancer with brain metastases status post SBRT/chemotherapy. Few small nodules increasing in size, thoracoscopy negative for malignancy 2021, history of radiation pneumonitis, hypoxia on
home oxygen, moderate COPD, history of carotid disease, coronary disease with catheterization 2017. History of cholecystectomy
Past Medical History
Past Medical History: None (See above)
Past Surgical History: None (See above)
Social History
Tobacco: Former Smoker (Quit smoking , less than [id number])
Alcohol: None
Drug: None
Personal:
Living: With Family
Employment: Retired
Family History
Family History: Other (Father from cancer, mother from COPD. Sister with history of asthma, daughter healthy)
Allergies / Home Medications
Allergies
Allergy/AdvReac Type Severity Reaction Status Date / Time
sulfamethoxazole Allergy Unknown Verified 03/02/25 08:13
[From Bactrim]
trimethoprim [From Bactrim] Allergy Unknown Verified 03/02/25 08:13
Home Medications
�Medication �Instructions �Recorded �Confirmed �Last Taken �Type
aspirin 81 mg tablet,delayed 81 mg PO DAILY@1999 Blood clot 11/19/18 03/02/25 03/11/22 History
release prevention/tx
atorvastatin 40 mg tablet 40 mg PO DAILY@1999 High 11/19/18 03/02/25 03/25/22 20:00 History
cholesterol
allopurinol 100 mg tablet 100 mg PO DAILY ##30 05/22/19 03/02/25 03/25/22 07:00 Rx
furosemide 20 mg tablet 20 mg PO DAILY Fluid 12/14/19 03/02/25 03/25/22 08:00 History
retention/Swelling
insulin aspart U-100 100 unit/mL 6 units SC BID Diabetes 12/09/20 03/02/25 03/25/22 16:00 History
(3 mL) subcutaneous pen (Novolog
FlexPen U-100 Insulin aspart)
insulin glargine 100 unit/mL (3 8 units SC HS Diabetes 12/09/20 03/02/25 03/25/22 21:30 History
mL) subcutaneous pen (Lantus 8 units
Solostar U-100 Insulin)
fluticasone 250 mcg-salmeterol 50 1 inh inhalation R BID Congestion 12/31/21 03/02/25 03/25/22 08:00 History
mcg/dose blistr powdr for
inhalation (Wixela Inhub)
albuterol sulfate 0.63 mg/3 mL 0.63 mg inhalation R QIDPRN PRN 03/02/25 03/02/25 Unknown History
solution for nebulization sob/wheezing
cholecalciferol (vitamin D3) 50 50 mcg PO DAILY 03/02/25 03/02/25 Unknown History
mcg (2,000 unit) tablet
lisinopril 40 mg tablet 40 mg PO DAILY 03/02/25 03/02/25 Unknown History
Review of Systems
-
Unable to Obtain full review of systems at this time due to: Patient Intubation
Vitals / Labs / Diagnostic Testing
Vital Signs
Temp Pulse Resp BP Pulse Ox
98.5 F 133 14 103/43 100
03/02/25 08:45 03/02/25 12:42 03/02/25 12:42 03/02/25 12:42 03/02/25 12:42
Lab Data
03/02/25 12:02
03/02/25 08:42
Laboratory Results
03/02/25
12:02
APTT 29.1
Diagnostic Testing:
Physical Exam
-
HEENT: Normocephalic, Anicteric and Other (Pupils pinpoint but reactive)
Cardiovascular: S1/S2, Regular Rhythm (Tachycardic), Murmur (n), Rub (n) and Peripheral Edema (n)
Respiratory: Wheeze (n), Rales (n), Rhonchi (n), Non-Labored Respirations and Other (ET tube)
GI: Soft and Non Distended
Neurology: Other (Sedated but sitting bolt upright at times, moving all extremities)
Skin: Other (No rash, extremities warm, capillary refill intact)
General: Comfortable (Agitated at times, dyssynchronous with ventilator)
Assessment
-
85-year-old female with history of lung cancer status post SBRT/chemotherapy, appears to be in remission, had enlarging lung nodule status post right thoracoscopy 2021, benign with history of radiation fibrosis, moderate COPD, coronary disease who
presents for 3 days of increased shortness of breath. Per ED records, patient appeared to be in respiratory distress, treated with nebulized therapy. CT chest obtained with IV contrast. Developed increased shortness of breath, given
nitroglycerin, then intubated, post intubation hypotension requiring norepinephrine. Admitted to ICU for further management 03/02/25
Acute respiratory failure
Intubated in the ED 03/02
Acute hypoxic respiratory insufficiency, failed BiPAP
Subjective dyspnea x 3 days as outpatient
Elevated troponin, abnormal EKG
Atrial fibrillation with rapid ventricular response
Hypotension
Cardiac versus sepsis
Hypoglycemia, repeat blood sugar 110
Bilateral patchy infiltrates
Pneumonia versus heart failure
Conditions present prior to admission
History of coronary disease, cardiac catheterization 2017 unremarkable
Cardiomyopathy, EF 45% per echo 2021
Bilateral pulmonary fibrosis
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
History of lung cancer ([facility]) status post chemoradiation, SBRT 2019
Cancer free per outpatient records, follows [facility]
Lung nodule status post right thoracoscopy negative ()
Moderate COPD
On home oxygen, noncompliant
20 to 30 pound weight loss, intentional
Distant tobacco history, quit
Plan/recommendations
At this time, patient is critically ill
Difficult to determine presenting factors patient received nebulized therapy, CT chest with IV contrast, Lasix, nitroglycerin and questionable steroids in the ED
Intubated for increased respiratory distress post CT chest
Received aspirin in the ED, started on heparin therapy
CT chest negative for PE
Upon arrival to ICU, tachycardia in the 160s, hypertensive, agitated and sitting up, dyssynchronous with the ventilator
Upon sedation, transition to ASV, airway pressures adequate
Chest exam is clear, no wheezing
Post intubation x-ray with increased bilateral patchy infiltrates
Cannot differentiate between heart failure and possible pneumonia
Unable to contact at this time, no answer
Moving forward
Continue with sedation for now, light sedation with propofol, fentanyl
Reassess hemodynamic status
Wean norepinephrine as able
Would prefer vasopressin given tachycardia at this time
Patient known to cardiology but apparently has not seen for 3 years per outpatient records
Await echocardiogram
EKG presently appears to be atrial fibrillation with rapid ventricular response
May require amiodarone, blood pressure precludes other therapies at this time
Heparin therapy per cardiology, aspirin given in the ED
Sepsis is also within the differential
Lactate pending
Empiric antibiotics for now. CT chest with airway narrowing likely from scarring although cannot assess chronicity at this time
Cannot confirm whether patient received steroids in the past but outpatient records suggest no steroids in the past year
If hypotension continues, will empirically start stress dose steroids
Presently no evidence of COPD exacerbation, chest exam is clear
Nebulized therapy
Follow blood sugars
Reviewed in length with critical care nursing, respiratory care
Attempted to contact no answer
TCCT 60 min
[2025-03-02 13:08] LABS: Direct Bilirubin 0.4 mg/dl (0.0-0.4); LDH 361 U/L (120-246)
[2025-03-02 13:12] LABS: Glucose - Point of Care 112 mg/dl (70-99)
[2025-03-02] MEDS: SOLU-MEDROL PF 125 MG IV (13:22)
[2025-03-02] MEDS: CORDARONE 103 MG IV (14:31)
--- NOTE | 2025-03-02 14:33 | CON.CAR ---
Addendum entered and electronically signed by Elijah Murray MD 03/02/25 16:16:
I saw and examined the patient.
The Extension Supervisor's note was reviewed and I agree with the note.
Comment:
GEN: Intubated and sedated with hypotension
HEENT: supple, anicteric, mmm, ET tube
LUNGS: bilat rhonchi
CV: Reg, S1/S2, 1/6 syst LSB, no gallop
ABD: soft, BS+, NT/ND
EXT: No edema
NEURO: Gross non-focal
SKIN: No rash
Plan:
She has a past medical history of chronic heart failure with mildly reduced ejection fraction, coronary artery disease, recovered cardiomyopathy with last EF 45%, non-small cell lung cancer status postchemotherapy and radiation who presents with
progressive shortness of breath, respiratory failure, rapid atrial fibrillation, and hypotension. We were called to see her regarding heart rates in the 150s with systolic blood pressures in the 70-80 range on Levophed for blood pressure support.
Bedside echo was performed which revealed EF of 30 to 35% with global hypokinesis and moderate MR. Her blood pressure continued to be on the low side and IV vasopressin was initiated in addition to the Levophed.
IV amiodarone was initiated but she continued to be hypotensive.
I decision was made to urgently cardiovert her due to her unstable blood pressure. The patient was already intubated and on IV propofol and fentanyl for sedation.
Using 200 J of synchronized biphasic current she was cardioverted for rapid atrial fibrillation to sinus rhythm. Her blood pressure improved to systolics in the 90-100 range. Will continue IV amiodarone drip for now.
Her troponin is also abnormal at 5. We will continue to trend this. She has known coronary artery disease. I would continue to treat this as a non-STEMI.
Continue IV heparin, aspirin, atorvastatin. Hold on beta-jamal and ZUNILDA inhibitor with hypotension.
She was given IV Lasix 60 mg in the emergency room. I will continue Lasix IV 40 mg twice daily. Creatinine is at 1.0. Continue to follow.
Agree with plan for antibiotics.
With new onset atrial fibrillation she will need long-term anticoagulation.
CT scan reviewed revealed no pulmonary embolism and possible radiation pneumonitis
Original Note:
Consultation
Consultation Request
Date/Time Consultation Requested: 03/02/25
Date/Time Consultation Performed: 03/02/25
Requesting Provider: Dr. Paulino
Performing Provider: Dr. Murray
Reason for Consultation: Afib with RVR, CHF
Medical History
-
History of Present Illness:
Patient came to the ER today with complaints of increased SOB for the last few days and had acute hypoxic respiratory failure requiring intubation in the ER and cardiology is now consulted for ongoing hypotension with rapid A-fib. Patient was last
seen by cardiology in the office on 02/14/2022 and at that time the etiology of her SOB was felt to be unclear, symptoms persisted despite diuresis with Lasix 20 mg daily over the years. Patient does have a history of lung cancer as outlined above.
Most recently, she saw her security operations engineer on 02/02/2025 for her history of lung cancer with suspected postradiation pneumonitis no obvious changes to therapy at that time and she seemed to be doing well until the last few days when she was more SOB and
found herself using supplemental oxygen which she usually never uses. In the ER she had worsening hypoxia and was intubated on 03/02/2025. Patient noted to be in A-fib with RVR which is a new diagnosis. Patient was progressively hypotensive.
Patient was transferred to the ICU and upon my arrival had an amiodarone bolus 150 mg IV x 1 rapidly infusing, vaso running at 0.04 and levo running at 12 with a BP of 89/36 and patient intubated and on the vent. Urgent bedside echo being wrapped
up with quick review showed EF at 30% with a PAP of 40 mmHg. Despite improved HR control BP was still low at 77/44. Patient already sedated with fentanyl and propofol and so patient was cardioverted with 200 J x 1 to SR with mild improvement in BP
to 88/41.
PMH:
Chronic HFrEF
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
CAD with DEATH CLAIM EXAMINER of large OM by last cath 11/20/2018
NSCLC, previous chemotherapy and radiation
s/p PET new left upper lobe groundglass opacity, but no other metastatic disease 10/14/2024
Past Medical History
Past Medical History: Other (in HPI)
Past Surgical History: Cholecystectomy
Social History
Tobacco: Former Smoker
Personal:
Living: With Family
Family History
Family History: Other (COPD)
Allergies / Home Medications
Allergy/AdvReac Type Severity Reaction Status Date / Time
sulfamethoxazole Allergy Unknown Verified 03/02/25 08:13
[From Bactrim]
trimethoprim [From Bactrim] Allergy Unknown Verified 03/02/25 08:13
�Medication �Instructions �Recorded �Confirmed �Type
aspirin 81 mg tablet,delayed 81 mg PO DAILY@1999 Blood clot 11/19/18 03/02/25 History
release prevention/tx
atorvastatin 40 mg tablet 40 mg PO DAILY@1999 High 11/19/18 03/02/25 History
cholesterol
allopurinol 100 mg tablet 100 mg PO DAILY ##30 05/22/19 03/02/25 Rx
furosemide 20 mg tablet 20 mg PO DAILY Fluid 12/14/19 03/02/25 History
retention/Swelling
insulin aspart U-100 100 unit/mL 6 units SC BID@08,17 Diabetes 12/09/20 03/02/25 History
(3 mL) subcutaneous pen (Novolog
FlexPen U-100 Insulin aspart)
insulin glargine 100 unit/mL (3 8 units SC HS Diabetes 12/09/20 03/02/25 History
mL) subcutaneous pen (Lantus
Solostar U-100 Insulin)
fluticasone 250 mcg-salmeterol 50 1 inh inhalation R BID Congestion 12/31/21 03/02/25 History
mcg/dose blistr powdr for
inhalation (Wixela Inhub)
albuterol sulfate 0.63 mg/3 mL 0.63 mg inhalation R QIDPRN PRN 03/02/25 03/02/25 History
solution for nebulization sob/wheezing
cholecalciferol (vitamin D3) 50 50 mcg PO DAILY 03/02/25 03/02/25 History
mcg (2,000 unit) tablet
lisinopril 40 mg tablet 40 mg PO DAILY 03/02/25 03/02/25 History
Review of Systems
-
History Source: Transfer Record
All other systems: Negative unless noted
Physical Exam
Vital Signs
Temp Pulse Resp BP Pulse Ox
97.6 F 133 14 103/43 96
03/02/25 13:24 03/02/25 12:42 03/02/25 12:42 03/02/25 12:42 03/02/25 13:15
GEN: Sedated. NAD.
HEENT: MMM
LUNGS: Intubated and on the ventilator. Coarse BS anterolaterally without wheeze
CV: Afib on tele. Rapid and irreg irreg, no murmur
ABD: soft, BS+, NT, ND
EXT: Trace B/L LE edema. No clubbing, cyanosis or lesions B/L
NEURO: Gross non-focal
SKIN: Warm, dry and pink. No rash
Lab Results
03/02/25 12:02
03/02/25 08:42
Troponin I 5.170 ng/ml H* 03/02/25 08:42
Vcg-X-Erpqkbttjox Pept 42985 pg/ml 03/02/25 08:42
Impression / Plan
-
PCP: Vilma DELEON
Card: Dr. Taylor, last seen 02/14/22
Impression:
Admitted with respiratory failure and rapid Afib 03/02/25
Acute hypoxic respiratory failure
Unsuccessful attempted BiPAP
Intubated/01/25
Newly diagnosed paroxysmal atrial fibrillation of unclear duration with RVR
Elevated troponin
Hypotension and shock
Possible PNA
Acute HFrEF
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
CAD with DEATH CLAIM EXAMINER of large OM by last cath 11/20/2018
NSCLC, previous chemotherapy and radiation
s/p PET new left upper lobe groundglass opacity, but no other metastatic disease 10/14/2024
ECHO 2018: Mid and distal lateral inferolateral A/dyskinesis, EF 40% mild MR, borderline dilated left atrium, right heart normal aortic valve
Echo 03/06/22: EF 45 to 50%, mid to distal inferolateral and lateral apical akinesis, stage I diastolic dysfunction, mild MR
Echo 03/02/25: Final report pending, preliminarily EF 30% with PAP 40 mmHg
Plan:
-Patient came to the ER today with complaints of increased SOB for the last few days and had acute hypoxic respiratory failure requiring intubation in the ER and cardiology is now consulted for ongoing hypotension with rapid A-fib. Patient was last
seen by cardiology in the office on 02/14/2022 and at that time the etiology of her SOB was felt to be unclear, symptoms persisted despite diuresis with Lasix 20 mg daily over the years. Patient does have a history of lung cancer as outlined above.
Most recently, she saw her security operations engineer on 02/02/2025 for her history of lung cancer with suspected postradiation pneumonitis no obvious changes to therapy at that time and she seemed to be doing well until the last few days when she was more SOB and
found herself using supplemental oxygen which she usually never uses. In the ER she had worsening hypoxia and was intubated on 03/02/2025. Patient noted to be in A-fib with RVR which is a new diagnosis. Patient was progressively hypotensive.
Patient was transferred to the ICU and upon my arrival had an amiodarone bolus 150 mg IV x 1 rapidly infusing, vaso running at 0.04 and levo running at 12 with a BP of 89/36 and patient intubated and on the vent. Urgent bedside echo being wrapped
up with quick review showed EF at 30% with a PAP of 40 mmHg. Despite improved HR control BP was still low at 77/44. Patient already sedated with fentanyl and propofol and so patient was cardioverted with 200 J x 1 to SR with mild improvement in BP
to 88/41.
-ECG reviewed by me is A-fib with RVR, HR 157 bpm and QTc 485 ms.
-Amiodarone bolus 150 mg IV x 1 was started prior to arrival and despite improved HR patient had ongoing hypotension resulting in cardioversion with single 200 J shock and worship of SR on 03/02/2025
-BP a bit better 88/41 following worship of sinus rhythm
-Remains on Levophed that was increased to 16 following CV
-Remains on vasopressin at 0.04
-Pulmonology is following as well and dose of Rocephin given for possible PNA
-There is also concern for acute HFrEF, EF previously 45 to 50% by echo 03/06/2022 and preliminarily looks a bit worse at 30% on bedside echo, but in the setting of rapid A-fib
-Lasix 60 mg IV x 1 was given in the ER on 03/02/2025 at 1104. Lasix 40 mg IV BID currently ordered. Patient was taking Lasix 20 mg daily prior to admission
-Patient had cardiac cath 11/20/2018 and there was known DEATH CLAIM EXAMINER of the large OM at that time
-presentation with CP
-indeterminate troponin
-CAD with h/o 100% OM1 occlusion with collaterals by cath 2009, treated medically
-GDMT is not appropriate at this time due to pressor dependent hypotension
[2025-03-02] MEDS: NSS 500 IV (14:39)
[2025-03-02 14:42] LABS: Glycohemoglobin (HgbA1c) 4.8 % (4.0-5.6)
[2025-03-02 14:43] LABS: Urine Albumin 2+ (Neg - Trace); Urine Bilirubin Negative (Negative); Urine Character Clear (Clear); Urine Color Yellow; Urine Glucose 2+ (Negative); Urine Ketone Negative (Negative); Urine Leukocyte 1+ (Negative); Urine Nitrite Negative (Negative); Urine Occult Blood 1+ (Negative); Urine Specific Gravity 1.015 (<1.030); Urine Urobilinogen Negative (Neg - 1+)
[2025-03-02 14:45] LABS: Lactic Acid 1.4 mmol/L (0.7-2.0)
--- NOTE | 2025-03-02 14:54 | PTCARENOTE ---
Rec. Pt. from ED.
Dsync. w. vent, vent settings changed to ASV 100/5/50. tolerating settings.
pt found to be in Afib RVR, increasing pressor demands. Norepi uptitrated, Vasopressin added.
Cardiology bedside, decision made to cardiovert.
-200J, x1 shock to Sinus.
Diprivan added for vent synchrony.
IV team to place PICC.
bedside, plan of care explained.
[2025-03-02 15:02] LABS: TSH Reflex To Free T4 1.16 uIU/ml (0.47-4.68)
[2025-03-02] MEDS: PROTONIX IV 40 MG IV (15:04)
[2025-03-02] MEDS: STERILE WATER FOR INJECTION 10 ML IV (15:04)
[2025-03-02] MEDS: ROCEPHIN 1000 MG IV (15:04)
[2025-03-02] MEDS: NSS (PRESERVATIVE FREE) 10 ML IV (15:04)
[2025-03-02] MEDS: NSS 1000 IV (15:05)
[2025-03-02] MEDS: LASIX 40 MG IV (15:05)
--- NOTE | 2025-03-02 15:05 | W.PN.UPDATE ---
Update Note
Progress Note Update
Patient developed progressive tachycardia, hypotension
Echocardiogram at bedside revealed EF of approximately 27%, normal RV (official report pending)
Patient was given 150 mg amiodarone, 500 cc bolus of normal saline, vasopressin initiated
With this, blood pressure remained low in the 80s, despite heart rate improving to the 100s
Patient maintained on sedation, propofol/fentanyl
Cardiology at the bedside
200 J synchronized biphasic shock administered, restore normal sinus rhythm without bradycardia or arrhythmia
With this, systolic pressure improved to the 90s to 100s
Moving forward
Continue with amiodarone drip
Continue with vasopressin, norepinephrine wean as able
Remains on heparin
Rectal aspirin administered
Ceftriaxone for empiric infectious process but at this point doubt pneumonia
Will adjust as able over the next 24 to 48 hours
Check ABG
Changed to volume-cycled ventilation, assist control
Updated daughter by phone and at bedside
Family to clarify CODE STATUS. There is an advanced directive and family will try to obtain.
Remains critically ill
Reviewed at length with critical care nursing, respiratory care, cardiology and primary service
TCCT 40 min
--- NOTE | 2025-03-02 15:06 | ITS.CL.CARDI ---
Project Engineer - Cardioversion
Cardioversion
Procedure Report:
Date of Procedure: 03/02/25
Procedure: Cardioversion
Indication: unstable atrial fibrillation with hypotension
Performing Physician: Ayad Hines MD
The patient was seen in the intensive care unit and was hypotensive with a systolic blood pressure of 70 on multiple pressors. She remained in atrial fibrillation with hypotension on IV amiodarone. A decision was made since she was unstable to
proceed with urgent cardioversion. The patient was on IV heparin. The patient was already on IV propofol and IV fentanyl. A 200 J synchronized biphasic shock restored normal sinus rhythm without significant bradycardia. There were no
complications.
Conclusion: Cardioversion from atrial fibrillation to sinus rhythm.
Recommendation: Routine post cardioversion care. Continue intermodal owner operator truck driver anticoagulation and pressor support.
[2025-03-02] MEDS: NSS IV (15:07)
[2025-03-02 15:17] LABS: Urine Hyaline Cast 0-2 /LPF (0-2); Urine Red Blood Cell 0-2 /HPF (0-2)
[2025-03-02 15:26] LABS: Triglycerides 86 mg/dl (10-149)
--- NOTE | 2025-03-02 15:34 | W.PN.UPDATE ---
Update Note
Progress Note Update
Patient seen urgently in ICU. Bedside management including increasing dose of Levo, following BPs and then making decision to proceed with CV. 41 min bedside and in coordination of care in critical care time.
[2025-03-02 15:53] LABS: INR 1.04; PT 14.1 Sec (11.4-14.6)
[2025-03-02] MEDS: ATROVENT NEBULES 0.5 MG INH (16:05)
[2025-03-02] MEDS: LEVOPHED 258 MG IV (16:33)
[2025-03-02] MEDS: CORDARONE 518 MG IV (16:40)
[2025-03-02 17:00] LABS: B.E. -5.8 mmol/L; HCO3 20.7 mmol/L (21-28); O2 Saturation % 98.5 % (94-98); PCO2 43 mmHg (32-35); PO2 96 mmHg (83-108); pH 7.29 (7.35-7.45)
[2025-03-02 17:32] LABS: Glucose - Point of Care 176 mg/dl (70-99)
[2025-03-02] MEDS: NOVOLOG FLEXPEN-LOW RESISTANCE 1 UNITS SC (18:03)
--- NOTE | 2025-03-02 18:07 | PTCARENOTE ---
Dsync w. vent settings changed from ASV to CMV.
Norepi changed to x2 concentrate.
living will given to case management.
[2025-03-02 18:25] LABS: APTT 62.7 Sec (23.4-35.0)
[2025-03-02] MEDS: LIPITOR TUBE (19:13)
--- NOTE | 2025-03-02 20:30 | PTCARENOTE ---
assessment as documented. pt arouses to verbal stimuli, moves all extremities. b/l wrist restraints in place. SR on monitor. + DP pulses w/ Doppler. afebrile. MAP goal >65. pt on amio/levo/vaso/prop/fent/heparin/IVF gtts. #7.5 ETT, noted 22cm @ lip.
AC 14/500/50%/5. ETT moved to center, oral care done. NPO, no GI access at this time. jaffe w /thermistor. foam applied to sacrum. CHG bath done. care ongoing
[2025-03-02] MEDS: FLOVENT 220 MCG INHALER 4 PUFF INH (20:53)
--- NOTE | 2025-03-02 22:30 | W.PN.UPDATE ---
Update Note
Progress Note Update
Procedure Note: Arterial Line�
� Right Wrist Arrow 20 (1 02/01)�
Diagnosis:��Acute hypoxic hypercapnic respiratory failure 2/2 acute on chronic HFmrEF,
IV Line Comments: Uneventful Procedure�
Aidan's test completed pre-procedure: Yes�
A-Line Comments: Sterile technique as per standard protocol, Ultrasound guided insertion�
Functioning A-line in situ: Yes�
A-line Insertion Start Time:��2139
A-line in at:��2144
[2025-03-02] MEDS: PITRESSIN 100 IV (23:11)
--- NOTE | 2025-03-02 23:26 | PTCARENOTE ---
ICU MEASUREMENT OPERATOR placed right radial arterial line at bedside, leveled and zeroed. levo gtt titrated to maintain MAP >65. amio gtt @ maintenance rate of 0.5mg/min at 2100. care ongoing
[2025-03-03] VITALS (19 sets, daily range): BP systolic 87–153; BP diastolic 39–61; BMI 25.2
[2025-03-03] MEDS: NOVOLOG FLEXPEN-LOW RESISTANCE 2 UNITS SC ×2 (00:20→05:00)
[2025-03-03 00:30] LABS: Glucose - Point of Care 209 mg/dl (70-99)
[2025-03-03] MEDS: LEVOPHED 258 MG IV ×6 (00:30→22:34)
[2025-03-03 01:27] LABS: APTT > 200 Sec (23.4-35.0)
--- NOTE | 2025-03-03 02:09 | PTCARENOTE ---
ICU TUBE BUILDING MACHINE OPERATOR notified of decreased UOP, 20ml/hr for last two hours. also notified TUBE BUILDING MACHINE OPERATOR of increasing levo gtt to try and maintain MAP goal, diastolic BP low on arterial line in 40s. goal adjusted to SBP >90.
[2025-03-03 03:23] LABS: HCO3 18.4 mmol/L (21-28); Ionized Calcium 1.18 mMOL/L (1.15-1.33); O2 Saturation % 98.6 % (94-98); PCO2 40 mmHg (32-35); PO2 96 mmHg (83-108); Potassium 5.2 mMOL/L (3.5-5.1); Sodium 134 mMOL/L (136-145); pH 7.27 (7.35-7.45)
--- NOTE | 2025-03-03 03:32 | PTCARENOTE ---
ICU COMMERCIAL ROOFING ESTIMATOR to bedside, SBP 90-100, levo gtt maxed. systolic cuff pressure reading 30 points higher. UOP 5ml last hour. AM labs sent. no new orders at this time
[2025-03-03] MEDS: SUBLIMAZE 100 IV (03:37)
[2025-03-03 03:40] LABS: % Basophils 0.1 % (0-2); % Immature Granulocytes 0.3 % (0-0.5); % Lymphocytes 10.1 % (20.5-51.1); % Monocytes 4.4 % (1.7-9.3); % Neutrophils 85.1 % (42.2-75.2); Absolute Lymphocytes 1.2 10^3/uL (1.2-3.4); Absolute Monocytes 0.5 10^3/uL (0.1-0.6); Hematocrit 40.6 % (37.0-47.0); Hemoglobin 13.6 g/dL (12.0-16.0); Mean Corp Hgb Conc. 33.5 g/dL (33.0-37.0); Mean Corpuscular Hgb 31.5 pg (27.0-31.0); Mean Platelet Volume 12.2 fL (7.4-10.4); Nucleated Red Blood Cells % 0 %; Platelet Count 229 10^3/uL (130-400); Red Blood Cell Count 4.32 10^6/uL (4.20-5.40); Red Cell Dist. Width 14.6 % (11.5-14.5); White Blood Cell Count 11.7 10^3/uL (4.8-10.8)
[2025-03-03 04:01] LABS: Lactic Acid 2.6 mmol/L (0.7-2.0)
[2025-03-03 04:15] LABS: HDL Cholesterol 55 mg/dl; LDL Cholesterol, Calculated 46 mg/dl; Total Cholesterol 118 mg/dl (50-199); Triglyceride 89 mg/dl (10-149); Very Low Density Lipoprotein 17 mg/dl (0-30)
[2025-03-03 04:55] LABS: ALT (SGPT) 43 U/L (0-35); AST (SGOT) 89 U/L (14-36); Albumin 3.5 g/dl (3.5-5.0); Alkaline Phosphatase 70 U/L (38-126); Blood Urea Nitrogen 37 mg/dl (7-17); Calcium 9.1 mg/dl (8.4-10.2); Carbon Dioxide 20 mmol/L (22-30); Chloride 111 mmol/L (98-107); Estimated Creatinine Clearance 20 ml/min; Glucose 200 mg/dl (70-99); Magnesium 1.7 mg/dl (1.6-2.3); Potassium 5.1 mmol/L (3.5-5.1); Sodium 141 mmol/L (135-145); Total Bilirubin 2.1 mg/dl (0.2-1.3)
[2025-03-03] MEDS: PITRESSIN 100 IV ×3 (05:14→21:40)
[2025-03-03] MEDS: MAGNESIUM SULFATE 50 IV (06:17)
--- NOTE | 2025-03-03 06:27 | PTCARENOTE ---
US currently at bedside. morning CXR done.. covid/flu swabs sent. mag being repleted
[2025-03-03 06:51] LABS: COVID-19 Antigen Negative (Negative)
[2025-03-03] MEDS: SOLU-CORTEF 100 MG IV (07:05)
[2025-03-03] MEDS: NSS (PRESERVATIVE FREE) 10 ML IV (07:05)
[2025-03-03] MEDS: LOW STRENGTH ASPIRIN TUBE (07:05)
[2025-03-03] MEDS: MIRALAX TUBE (07:05)
[2025-03-03] MEDS: PROTONIX IV 40 MG IV (07:05)
[2025-03-03] MEDS: FLOVENT 220 MCG INHALER 4 PUFF INH ×2 (07:40→20:54)
[2025-03-03] MEDS: DUONEB 3 ML INH ×4 (07:40→20:54)
--- NOTE | 2025-03-03 08:00 | PTCARENOTE ---
Addendum entered by Marjorie Hess RN 03/03/25 08:13:
pt open eyes to name, nods yes and no appropriately, LEYDI.
Original Note:
pt received from previous rn- ett to vent- see settings as charted. nsr with bbb and pvcs on monitor. pt continues on adina, vaso and levo for systolic goal>90. amio, heparin, prop and fent continue as per order. Dr. Hayes at bedside- plan of care
discussed. Dr. Hayes aware pt with absent left pedal pulses but doppler femoral. pt oliguric- nany urine in jaffe. pt turned and repositioned. all safety precautions in place. right radial breezy zeroed and functioning.
--- NOTE | 2025-03-03 08:04 | W.CON.NEPH ---
Consultation
-
Date/Time Consultation Requested: 03/03/2025 7:00 AM
Date/Time Consultation Performed: 03/03/2025 8:00 AM
Requesting Provider: Dr. Neal
Performing Provider: Dr. Navarro
Reason for Consultation: Acute kidney injury
Medical History
-
Chief Complaint: Acute kidney injury
History of Present Illness:
the patient is an 85yo F with PMHx of CAD, CHF (on lasix therapy), pulmonary HTN, gout, COPD, DM, HTN, lung CA lst chemo 2 years ago, Hx of brain lesions s/p Cyberknife (PET in Oct 2024 - No suspicious FDG-avid lesions.) brought with gradual
worsening of SOB for few days, after CT developed rapidly progressive hypoxia unresponsive and was intubated on 03/02/25. As per - patient could not breath for past few days with worsening malaise and in the morning of admission almost
fainted. Started just 3 days before admission. Patient was using O2 machine at home since she was SOB with minimal excertion. No chest pain and no signs of respiratory infection. CT scan was obtained in the emergency room to rule out pulmonary
embolism. Nephrology was consulted with acute renal failure as her creatinine has now escalated from 1 to 1.6. Patient also developed atrial fibrillation while in the emergency room with dynamic instability .of note throughout her presentation she
had been hemodynamically unstable.
Past Medical History
Hypertension, hyperlipidemia, history of pneumonia, lung cancer with brain metastases status post SBRT/chemotherapy. Few small nodules increasing in size, thoracoscopy negative for malignancy 2021, history of radiation pneumonitis, hypoxia on home
oxygen, moderate COPD, history of carotid disease, coronary disease with catheterization 2017. History of cholecystectomy, CHF
Social History
Tobacco: Former Smoker
Alcohol: None
Personal:
Family History
no ckd
Allergies / Home Medications
Allergy/AdvReac Type Severity Reaction Status Date / Time
sulfamethoxazole Allergy Unknown Verified 03/02/25 08:13
[From Bactrim]
trimethoprim [From Bactrim] Allergy Unknown Verified 03/02/25 08:13
�Medication �Instructions �Recorded �Confirmed �Type
aspirin 81 mg tablet,delayed 81 mg PO DAILY@1999 Blood clot 11/19/18 03/02/25 History
release prevention/tx
atorvastatin 40 mg tablet 40 mg PO DAILY@1999 High 11/19/18 03/02/25 History
cholesterol
allopurinol 100 mg tablet 100 mg PO DAILY ##30 05/22/19 03/02/25 Rx
furosemide 20 mg tablet 20 mg PO DAILY Fluid 12/14/19 03/02/25 History
retention/Swelling
insulin aspart U-100 100 unit/mL 6 units SC BID@, Diabetes 12/09/20 03/02/25 History
(3 mL) subcutaneous pen (Novolog
FlexPen U-100 Insulin aspart)
insulin glargine 100 unit/mL (3 8 units SC HS Diabetes 12/09/20 03/02/25 History
mL) subcutaneous pen (Lantus
Solostar U-100 Insulin)
fluticasone 250 mcg-salmeterol 50 1 inh inhalation R BID Congestion 12/31/21 03/02/25 History
mcg/dose blistr powdr for
inhalation (Wixela Inhub)
albuterol sulfate 0.63 mg/3 mL 0.63 mg inhalation R QIDPRN PRN 03/02/25 03/02/25 History
solution for nebulization sob/wheezing
cholecalciferol (vitamin D3) 50 50 mcg PO DAILY 03/02/25 03/02/25 History
mcg (2,000 unit) tablet
lisinopril 40 mg tablet 40 mg PO DAILY 03/02/25 03/02/25 History
Review of Systems
-
Unable to obtain full review of systems at this time due to: Patient Intubation
All other systems: Negative unless noted
Physical Exam
Vital Signs
Vital Signs
Temp Pulse Resp BP Pulse Ox
100 F 71 16 133/48 96
03/03/25 07:04 03/03/25 07:41 03/03/25 07:41 03/03/25 06:23 03/03/25 07:41
Lab Results
03/03/25 03:12
03/03/25 04:20
WBC 11.7 10^3/uL (4.8-10.8) H 03/03/25 03:12
RBC 4.32 10^6/uL (4.20-5.40) 03/03/25 03:12
Hgb 13.6 g/dL (12.0-16.0) 03/03/25 03:12
Hct 40.6 % (37.0-47.0) 03/03/25 03:12
Plt Count 229 10^3/uL (130-400) D 03/03/25 03:12
Sodium 141 mmol/L (135-145) 03/03/25 04:20
Potassium 5.1 mmol/L (3.5-5.1) 03/03/25 04:20
Chloride 111 mmol/L (98-107) H 03/03/25 04:20
Carbon Dioxide 20 mmol/L (22-30) L 03/03/25 04:20
BUN 37 mg/dl (7-17) H 03/03/25 04:20
Creatinine 1.6 mg/dL (0.6-1.0) H 03/03/25 04:20
eGFR 31.80 03/03/25 04:20
Glucose 200 mg/dl (70-99) H 03/03/25 04:20
Calcium 9.1 mg/dl (8.4-10.2) 03/03/25 04:20
Gtd-W-Udvdjowjris Pept 11475 pg/ml 03/02/25 08:42
Albumin 3.5 g/dl (3.5-5.0) 03/03/25 04:20
Physical Exam
General: Intubated and sedated
HEENT: ETT
Respiratory: coarse to auscultation bilaterally with mechanical lung excursion
Cardiac: S1/S2 and Regular Rate/Rhythm tachy
Breast: Deferred by me
Abdomen: Soft, Nontender, Nondistended, Normal Bowel Sounds and No Hepatosplenomegaly
Rectal: Deferred by Provider
Genito-urinary: Dooley
Extremities: No Clubbing, No Cyanosis and No Edema
Skin: No Rash or open lesions
Neuro: Unobtainable as patient is sedated/intubated
Hematologic/Lymphatic: No Cervical Lymphadenopathy, No Submandibular Lymphadenopathy and No Supraclavicular Lymphadenopathy
Psych: Unobtainable as patient is intubated
Vascular: plus 1 pedal and radial pulses
Data Reviewed
-
Radiology: Image Personally Visualized and interpreted (Chest x-ray reviewed from this morning significant right lobe opacity)
Medical Tests (Nuc Med, Echo etc): Other (Echocardiogram reviewed EF 25%)
Labs: Labs Reviewed by me (BMP CBC)
Old Records: Reviewed (Reviewed previous creatinine levels from old medical record: 03/22/25 0.7 creatinine)
Assessment/Plan
-
Impression:
VASHTI
Metabolic acidosis
VDRF
Presentation with hypercapnic respiratory failure and hemodynamic collapse
Elevated troponin
Cardiomyopathy with known history of congestive heart failure now with EF ~25%
New onset A-fib status post cardioversion on admission
Bilateral pulmonary fibrosis
History of lung cancer non-small cell carcinoma
Moderate COPD
Diabetes
Plan:
VASHTI:
-Likely precipitated by strong prerenal stimulus in setting of hemodynamic instability and administration of IV contrast from CT of chest
-Urine output dropping
-Maintain Dooley catheter
-Maintain pressor support to keep MAP 65 or greater to augment renal perfusion ( 3 pressor support)
-Obviously holding all antihypertensives including RAAS antagonist at this
-No acute indication for hemodialysis
-Volume status difficult to ascertain, no noted peripheral volume overload , but CT findings could be more consistent with pulmonary edema
-We will stabilize her hemodynamically and then if indicated we will proceed with diuresis if possible over the next 24 hours (FiO2 currently stable at 40%)
-The patient is critically ill on 3 pressor support and intubated in the setting of worsening renal failure, 45 minutes critical care time spent with
Total Time Spent with Patient (in minutes): 45
--- NOTE | 2025-03-03 08:13 | RESPNOTE ---
ETT bocanegra changed and ETT moved to right of mouth 22@ the lips.
--- NOTE | 2025-03-03 08:23 | W.PN.INTV ---
Addendum entered and electronically signed by Ilan Hayes MD 03/03/25 12:59:
Patient remains critically ill. Currently on 3 pressors. Patient does awaken at times, remains otherwise on fentanyl/propofol. Remains in sinus rhythm post cardioversion at bedside /
Heart rate 70s, afebrile, FiO2 40%, 94%
Spontaneously moves extremities, opens eyes
Chest exam with bibasilar crackles, no wheeze, no crepitus
ET tube in place
Upper extremity PICC line
Regular rate rhythm, no murmurs
Abdominal exam soft
Extremities no clubbing cyanosis or significant edema
Data reviewed
Chest x-ray with bibasilar consolidation, atelectasis, pleural effusions, suspected heart failure
A/P
Remains critically ill, now on Rogers-Synephrine, norepinephrine, vasopressin
Echocardiogram EF 30%, PA pressure 40
No significant valvular abnormality
Patient underwent bedside cardioversion yesterday for rapid atrial fibrillation and persistent hypotension, successfully converted to normal sinus rhythm
Remains on amiodarone
Remains on heparin therapy
Continue aspirin
Moving forward
Possible underlying cardiac event versus sepsis
Continue with antibiotics, currently on cefepime/vancomycin, was on ceftriaxone
I do have a low suspicion for pneumonia as I suspect her pulmonary findings are chronic from radiation
Concerned about elevated creatinine, 1.6
Nephrology following
Suspect prerenal, secondary to hypotension
Hyperglycemia noted
Increase sliding scale insulin and follow
Place Dobbhoff tube, administer aspirin therapy, medications
No indication for steroids at this time
Do not suspect COPD exacerbation. Will continue with inhaler regimen
DuoNebs, Flovent
Reviewed with and daughter at bedside during rounds
They confirmed that they would not want patient reintubated if extubation is pursued
They do want shock, CPR if needed at least in the short-term
Reviewed with critical care nursing, respiratory care, pharmacy
TCCT 35 min
Original Note:
Today's Communication / Plan
Recommendations
Continue supportive measures for now
Maintain MAP > 65
Wean Levophed as able
Broad-spectrum antibiotics
Assessment
-
85-year-old female with history of lung cancer status post SBRT/chemotherapy, appears to be in remission, had enlarging lung nodule status post right thoracoscopy 2021, benign with history of radiation fibrosis, moderate COPD, coronary disease who
presents for 3 days of increased shortness of breath. Per ED records, patient appeared to be in respiratory distress, treated with nebulized therapy. CT chest obtained with IV contrast. Developed increased shortness of breath, given
nitroglycerin, then intubated, post intubation hypotension requiring norepinephrine. Admitted to ICU for further management 03/02/25
#Acute respiratory failure-- Intubated in the ED 03/02
#Acute hypoxic respiratory insufficiency, failed BiPAP; Subjective dyspnea x 3 days as outpatient
#Elevated troponin, abnormal EKG
#Atrial fibrillation with rapid ventricular response
#Hypotension; Cardiac versus sepsis
# Hyperglycemia; was initially hypoglycemia on arrival
#Bilateral patchy infiltrates; Pneumonia versus heart failure
Conditions present prior to admission
History of coronary disease, cardiac catheterization 2017 unremarkable
Cardiomyopathy, EF 45% per echo 2021
Bilateral pulmonary fibrosis
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
History of lung cancer ([facility]) status post chemoradiation, SBRT 2019
Cancer free per outpatient records, follows [facility]; Lung nodule status post right thoracoscopy negative ()
Moderate COPD; On home oxygen, noncompliant
20 to 30 pound weight loss, intentional
Distant tobacco history, quit
Plan:
At this time, patient is critically ill
Intubated for increased respiratory distress post CT chest; no evidence of PE
Received aspirin in the ED, Currently on heparin therapy
Post intubation x-ray with increased bilateral patchy infiltrates
Cannot differentiate between heart failure and possible pneumonia
Diuresis limited due to new VASHTI
Currently on 3 pressors Levophed at 30, vasopressin 0.04 and was started on rogers-. Wean Levophed as able
Patient s/p cardioversion currently in sinus rhythm
Echocardiogram at bedside revealed EF of approximately 27%, normal RV
Sepsis is also within the differential; WBC trending up
Lactate trending up
Empiric antibiotics for now. CT chest with airway narrowing likely from scarring although cannot assess chronicity at this time
Reasonable to cover respiratory infection with worsening pressor requirements at this time
Cannot confirm whether patient received steroids in the past but outpatient records suggest no steroids in the past year
If hypotension continues, will empirically start stress dose steroids
Presently no evidence of COPD exacerbation, chest exam is clear
Nebulized therapy
Maintain MAP>65
Replete electrolytes with K>4, Mg>2
Maintain euglycemia with goal BG 140-180
Discussed with family( and daughter) at bedside.
Data:
Abdominal ultrasound:
IMPRESSION:
Status post cholecystectomy with no evidence for biliary ductal dilation.
No focal abnormality of the liver.
Spleen and left kidney are unable to be adequately visualized. Pancreatic tail is not well seen.
Dense calcification from the abdominal aorta, limiting visualization of the posterior wall.
Small to moderate right pleural effusion is present.
Subjective Dataa
Subjective Data
Date of Service:
Date of Service: March 03, 2025
Chief Complaint: Hay Chopper Follow Up
Subjective:
Patient seen in the a.m. today. Appears chronically ill. Currently on 3 pressors(Levophed, vasopressin, rogers-), heparin drip, amiodarone drip. On vent at 16/400/40/5.
Review of Systems
General: Unobtainable - Sedation
Genitourinary: Dooley
Objective Data
Data Reviewed
Vital Signs / I&O / Oxygen:
Vital Signs
Temp Pulse Resp BP Pulse Ox
100 F 71 16 133/48 96
03/03/25 07:04 03/03/25 07:41 03/03/25 07:41 03/03/25 06:23 03/03/25 07:41
Intake and Output
03/02/25 03/03/25 03/04/25
06:59 06:59 06:59
Intake Total 2739.0 / 2841.3 102.3 / 102.3
Output Total 606 / 607
Balance 2133.0 / 2234.3 101.3 / 101.3
SaO2 [A/C] 97
SaO2 96
Nasal Cannula flow liters per 6
minute
Physical Exam
General: Other (Patient intubated)
Cardiovascular: Regular Rhythm
Respiratory: Non-Labored Respirations
Skin: Warm
Labs/Micro/Reports
Lab Data
03/03/25 03:12
03/03/25 04:20
Laboratory Results
03/02/25 03/02/25 03/02/25
12:02 16:49 17:55
PT 14.1
INR 1.04
APTT 29.1 62.7 H
pH 7.29 L
pCO2 43 H
pO2 96
HCO3 20.7 L
O2 Delivery Level Not Reportable
03/03/25 03/03/25
00:18 03:12
PT
INR
APTT > 200 H*
pH 7.27 L
pCO2 40 H
pO2 96
HCO3 18.4 L
O2 Delivery Level
Microbiology
03/03/25 06:08 Nasal Swab Influenza Types A & B (ML) - Final
Negative for Influenza A & B, NAAT
Negative results must be combined with clinical observations
and patient history.
Nucleic Acid Amplification test (NAAT)performed on the
[employer] platform.
--- NOTE | 2025-03-03 08:54 | PHA.VAN.IN ---
Assessment
- Assessment
Renal Function: Appears elevated from baseline (Baseline SCr ~0.8, current 1.6)
Maximum Temperature: 100
Minimum Temperature: 97.6
Concomitant Antimicrobials: Cefepime
Plan
- Plan
Initial / Loading Dose: Vanco 1500mg loading given on 03/03/25 at
Maintenance Regimen: Dose by level
Monitoring: Vanco R level 03/04/25 0600
Pharmacokinetics Vancomycin I
- -
Patient Age: 85
Patient Sex: Female
Vancomycin Day #: 1
Indication: Pulmonary/Respiratory
Requesting Provider: Lora
Pertinent Antimicrobial Allergies:
Trimethoprim/Sulfamethoxazole - Unknown Manifestation
Height / Weight:
Height 5 ft 1 in
Actual Weight 60.4 kg
- Vital Signs / Lab Results
Temp Pulse Resp BP Pulse Ox
100 F 82 16 150/51 96
03/03/25 07:04 03/03/25 08:30 03/03/25 08:30 03/03/25 08:00 03/03/25 08:30
Lab Results - Hematology
03/02/25 03/02/25 03/03/25
08:42 12:02 03:12
WBC 8.8 8.5 11.7 H
Lab Results - Chemistry
03/02/25 03/03/25 03/03/25
08:42 03:12 04:20
BUN 31 H Cancelled 37 H
Creatinine 1.0 Cancelled 1.6 H
Estimated Creat Clear 32 Cancelled 20
Albumin 4.5 Cancelled 3.5
03/02/25 03/02/25 03/03/25
14:00 18:15 03:23
Lactic Acid 1.4 Cancelled 2.6 H
Lab Results - Urine
03/02/25
14:31
Urine Nitrite (Reflex) Negative
Leukocyte Esterase Rfl 1+ A
Urine WBC (Reflex) 6-10
Ur Squamous Epith Cells 6-10
Microbiology Results
03/03/25 06:08 Influenza Types A & B (ML) - Final
Nasal Swab Negative for Influenza A & B, NAAT
Negative results must be combined with clinical observations
and patient history.
Nucleic Acid Amplification test (NAAT)performed on the
[employer] platform.
--- NOTE | 2025-03-03 08:56 | W.PN.HOSP.TC ---
Today's Communication/Plan
-
broad spectrum Abx
pending RUQ US
hold off diurtesis
Assessment / Plan
Assessment / Plan
85yo F with PMHx of CAD, HFmrEF, pulmonary HTN, gout, COPD, DM, HTN, lung CA lst chemo 2 years ago, Hx of brain lesions s/p Cyberknife (PET in Oct 2024 - No suspicious FDG-avid lesions.) brought with gradual worsening of SOB for few days, after CT
developed rapidly progressive hypoxia unresponsive to NIV in ED and was intubated on 03/02/25. Managed for acute pulmonary edema, NSTEMI, Afib and shock with multiorgan failure
A/P:
#NSTEMI with PMHx of CAD
#Acute hypoxic hypercapnic respiratory failure 2/2 acute on chronic HFmrEF exacerbation cannot exclude allergic reaction to the contrast
#New onset Afib with RVR
Heparin drip
No obvious ST elevation on EKG
serial troponin downtrending
ASA load and daily
lipitor
BB when BP improves
Cardiology consult: s/p CV on 03/02/25 with return of the sinus rhythm
Echo: global hypokinesis, EF 30%, moderate MR and TR with elevated pulmonary pressure, b/l pleural effusions
Diuresis as able (limited by new VASHTI) Follow Cr and electrolytes
Vent mgmt as per [employer]
As per cath in 2018: Stable coronary anatomy with chronic total occlusion of a large obtuse marginal branch, Mildly reduced LVEF visually estimated at 40-45%
COVID-19 and influenza PCR neg
#VASHTI
2/2 shock and hypoxia cannot wexclude RANDEE component
Nephro consult: avoid hydration, but also hold off diuresis with oliguria
#Minimal bilirubinemia
#transaminitis
possible ischemic hepatitis
follow LFT, INR
US RUQ
LDH mildly elevated
Hepatitis panel pending
#Shock, unspecified
Worsening pressor requirements: on 3 pressors as of 03/03/25
Empiric broad Abx coverage
Follow Bcx
Afebrile with mild leukocytosis after dose of steroids
ICU
CTA chest without pulmonary embolism or pneumonia
UA with some leukocyte esterase but no pyuria, pending Ucx
With significant pulmonary changes - reasonable to cover for respiratory infection with worsening pressor requirements
follow lactate
#DM type 2 on insulin with hypoglycemia on admission
Insulin SS, might need drip
TSH WNL
#COPD, not in exacerbation
no wheezing
cont bronchodilators
#HLD
#gout
#Essential HTN
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
cont current meds when acute issue resolve and BP improves
DVT ppx on hep drip
full code
I have spent at least 78min of critical care time reviewing chart, test results, communication with consultants and providing direct patient care
Anticipated Discharge: > 48 hours
Subjective/Interval History
-
Date of Service: March 03, 2025
Objective Data
-
Labs:
Laboratory Results
03/03/25 03/03/25 03/03/25
00:18 03:12 04:20
WBC 11.7 H
Hgb 13.6
Hct 40.6
Plt Count 229 D
APTT > 200 H*
HCO3 18.4 L
Sodium Cancelled 141
Potassium Cancelled 5.1
Chloride Cancelled 111 H
Carbon Dioxide Cancelled 20 L
BUN Cancelled 37 H
Creatinine Cancelled 1.6 H
Glucose Cancelled 200 H
Calcium Cancelled 9.1
Total Bilirubin Cancelled 2.1 H
AST Cancelled 89 H
ALT Cancelled 43 H
Alkaline Phosphatase Cancelled 70
03/03/25
09:30
WBC
Hgb
Hct
Plt Count
APTT Pending
HCO3
Sodium
Potassium
Chloride
Carbon Dioxide
BUN
Creatinine
Glucose
Calcium
Total Bilirubin
AST
ALT
Alkaline Phosphatase
Vital Signs:
Vital Signs
Temp Pulse Resp BP Pulse Ox
100 F 82 16 150/51 96
03/03/25 07:04 03/03/25 08:30 03/03/25 08:30 03/03/25 08:00 03/03/25 08:30
I&O
03/02/25 03/03/25 03/04/25
06:59 06:59 06:59
Intake Total 2739.0 / 2841.3 306.9 / 306.9
Output Total 606 / 607
Balance 2133.0 / 2234.3 290.9 / 290.9
Review of Systems
-
Unable to obtain full review of systems at this time due to: Patient Intubation
Physical Exam
-
General: Intubated
HEENT: Moist Mucous Membranes
Respiratory: Negative Wheezes
Cardiac: Regular Rhythm
GI: Soft, Nontender and Nondistended
Genito-urinary: No Costovertebral Tender
Neuro: Sedated
[2025-03-03 09:30] LABS: APTT 127.8 Sec (23.4-35.0)
[2025-03-03] MEDS: VANCOCIN 530 MG IV (09:39)
[2025-03-03] MEDS: MAXIPIME 1000 MG IV ×2 (09:39→21:09)
[2025-03-03] MEDS: DIPRIVAN 100 IV ×2 (09:40→21:37)
[2025-03-03] MEDS: STERILE WATER FOR INJECTION 10 ML IV ×2 (09:40→21:09)
[2025-03-03] MEDS: SUBLIMAZE 50 MCG IV ×4 (11:04→21:15)
[2025-03-03] MEDS: NOVOLOG FLEXPEN-MODERATE RESISTANCE 1 UNITS SC ×3 (11:56→23:07)
[2025-03-03 12:06] LABS: Glucose - Point of Care 157 mg/dl (70-99)
--- NOTE | 2025-03-03 12:06 | W.PN.CARDCBS ---
Today's Communication / Plan
-
Remains sedated and intubated on multiple pressors. Hopefully wean Levophed and vasopressin today.
Continue IV amiodarone and IV heparin.
Okay to hold Lasix for 24 hours but will likely need to restart in a.m. if creatinine stable.
Peak troponin is 5. She has known coronary artery disease. Would be reasonable to consider cardiac cath when she is extubated and stable if she recovers.
Continue aspirin, heparin, and atorvastatin. Restart beta-jamal when off pressors.
LVEF has declined to 25-30%, mild-mod MR, mod TR
Impression / Plan
-
PCP: Vilma DELEON
Card: Dr. Taylor, last seen 02/14/22
Impression:
Admitted with respiratory failure and rapid Afib 03/02/25 s/p urgent CV
Acute hypoxic respiratory failure
Unsuccessful attempted BiPAP
Intubated
Newly diagnosed paroxysmal atrial fibrillation of unclear duration with RVR
Elevated troponin/Nstemi
Hypotension and shock
Possible PNA
Acute HFrEF
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
CAD with DIALYSIS RN of large OM by last cath 11/20/2018
NSCLC, previous chemotherapy and radiation
s/p PET new left upper lobe groundglass opacity, but no other metastatic disease 10/14/2024
ECHO 2018: Mid and distal lateral inferolateral A/dyskinesis, EF 40% mild MR, borderline dilated left atrium, right heart normal aortic valve
Echo 03/06/22: EF 45 to 50%, mid to distal inferolateral and lateral apical akinesis, stage I diastolic dysfunction, mild MR
Echo 03/02/25: Final report pending, preliminarily EF 30% with PAP 40 mmHg
Plan:
Remains intubated and hypotensive on Levophed and vasopressin. Continue to wean as tolerated.
Continue IV amiodarone and IV heparin. Remains in sinus rhythm status post urgent cardioversion. Eventually will need to initiate long-term anticoagulation.
It remains unclear the etiology of her hypotension. Possible sepsis being treated with antibiotics at this time.
Troponin peaked at 5. Possible non-STEMI versus nonischemic myocardial injury. Will continue IV heparin, aspirin, and atorvastatin. She has CAD with h/o 100% OM1 occlusion with collaterals by cath 2009. Would be reasonable to consider cardiac
cath this hospitalization with ejection fraction reduced to 30% and troponin of 5. Will reassess once extubated. For now continue conservative therapy. She will also need long-term anticoagulation with Eliquis
Creatinine up to 1.6. proBNP is 15,000. I do suspect she is in acute heart failure with reduced ejection fraction. Okay to let kidney settle for 24 hours but likely will need diuresis soon.
CC time 34min
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
Subjective
Date of Service: March 03, 2025
Remains intubated and sedated. On multiple pressors still. Afebrile but having low-grade temperatures.
Objective
Labs:
03/03/25 03:12
03/03/25 04:20
Labs
Hgb 13.6 g/dL (12.0-16.0) 03/03/25 03:12
Hct 40.6 % (37.0-47.0) 03/03/25 03:12
Plt Count 229 10^3/uL (130-400) D 03/03/25 03:12
PT 14.1 Sec (11.4-14.6) 03/02/25 12:02
INR 1.04 03/02/25 12:02
APTT 127.8 Sec (23.4-35.0) H 03/03/25 09:08
Sodium 141 mmol/L (135-145) 03/03/25 04:20
Potassium 5.1 mmol/L (3.5-5.1) 03/03/25 04:20
BUN 37 mg/dl (7-17) H 03/03/25 04:20
Creatinine 1.6 mg/dL (0.6-1.0) H 03/03/25 04:20
Glucose 200 mg/dl (70-99) H 03/03/25 04:20
Troponins
03/02/25 03/02/25 03/02/25
08:42 14:00 17:55
Troponin I 5.170 H* 5.240 H* 4.550 H*
03/03/25
00:18
Troponin I 4.430 H*
Vital Signs and I&O:
Vital Signs
Temp Pulse Resp BP Pulse Ox
99.8 F 67 16 153/51 96
03/03/25 11:08 03/03/25 11:44 03/03/25 11:44 03/03/25 10:00 03/03/25 12:00
Vital Signs
Temp Pulse Resp BP Pulse Ox
99.8 F 67 16 153/51 96
03/03/25 11:08 03/03/25 11:44 03/03/25 11:44 03/03/25 10:00 03/03/25 12:00
Intake & Output
03/01/25 03/02/25 03/03/25 03/04/25
06:59 06:59 06:59 06:59
Intake Total 2739.0 / 2841.3 628.8 / 628.8
Output Total 606 / 607 37 / 37
Balance 2133.0 / 2234.3 591.8 / 591.8
Physical Exam
Physical Exam
GEN: No distress, awake, Ox3
HEENT: supple, anicteric, mmm
LUNGS:scatt rhonchi
CV: Reg, S1/S2, 1/6 syst LSB, S3+
ABD: soft, BS+, NT/ND
EXT: No edema
NEURO: Gross non-focal
SKIN: No rash
--- NOTE | 2025-03-03 12:18 | PTCARENOTE ---
all systems reviewed, assessment unchanged. pt turned and repositioned, oral care provided. adina gtt off.
--- NOTE | 2025-03-03 14:01 | CM ---
CM following re: discharge planning.
Reviewed pt's chart, met with pt. CM met with pt's daughter Praveena yesterday.
Pt is an 85year old female, admitted with primary dx of Acute respiratory failure-- Intubated in the ED 03/02. PMH includes: CAD, HFmrEF, pulmonary HTN, gout, COPD, DM, HTN, lung CA lst chemo 2 years ago, Hx of brain lesions s/p Cyberknife (PET in Oct
2023. Per Rounds meeting pt remains intubated, critically ill, continue supportive care.
Per daughter pt lives with 2SH, 2 steps to enter. 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 No DME, VN or SNF history.
PCP: Piyush Carlson
Pharmacy: [facility]
D/C plan: uncertain at this time and will de[end on pt's progress.
CM will follow with discharge plan updates as hospitalization progresses
[2025-03-03] MEDS: LOW STRENGTH ASPIRIN 81 MG TUBE (14:11)
[2025-03-03] MEDS: CORDARONE 518 MG IV (14:30)
--- NOTE | 2025-03-03 15:30 | PTCARENOTE ---
right nare dobhoff placed per order, xray to confirm placement. tube at 60cm.
--- NOTE | 2025-03-03 16:47 | PTCARENOTE ---
pt given fentanyl for increased cpot. and daughter at bedside and updated. adina restarted to maintain systolic >90, pt remains without left doppler pedal pulse, cool to touch at foot, Dr. Hayes remains aware, color wnl.
[2025-03-03 16:55] LABS: APTT 121.3 Sec (23.4-35.0)
[2025-03-03 17:16] LABS: Glucose - Point of Care 150 mg/dl (70-99)
[2025-03-03 19:31] LABS: Hepatitis B Surface Antigen Negative (Negative)
--- NOTE | 2025-03-03 19:37 | W.PN.UPDATE ---
Addendum entered and electronically signed by PANCHO Garrison 03/03/25 20:16:
Patient's daughter Praveena called and was updated on current condition, all questions answered.
Her phone number [phone] (cell).
Addendum entered and electronically signed by PANCHO Garrison 03/03/25 19:56:
Patient's Tom, called back. He was updated on patient's current condition, all questions answered. He would like to be called with any other clinical changes. Will attempt to keep extremity warm with blankets and Homero hugger, ordered US
of bilateral legs.
Original Note:
Update Note
Progress Note Update
1829- Patient's extremities have been cool and clammy. Now no pulse in the pedal or post tib only femoral pulse on the left leg which is pale and cold. Attempted to call patient's , left voicemail to call back (gave ICU's number). Will
attempt to keep extremities warm, blankets and/or Homero hugger likely vasoconstriction from vasopressors, multiple comorbidities, vs possible clot/dvt. Dr. Hayes, survey statistician aware and case discussed. Consider if family wants to have vascular
surgery consulted, however overall prognosis is guarded.
[2025-03-03 19:48] LABS: Hepatitis B Core Ab, Total Negative (Negative); Hepatitis B Surface Antibody Negative; Hepatitis C Antibody Negative (Negative)
[2025-03-03] MEDS: LIPITOR 40 MG TUBE (21:08)
--- NOTE | 2025-03-03 22:24 | PTCARENOTE ---
Received patient at change of shift. Patient sedated however able to move all extremities at times. Patient NSR on the monitor, trace le edema, right weak pedal pulse with doppler, left foot pedal pulse absent with doppler at start of shift. Mitra
PANCHO Johnson notified of absent left foot DP/PT pulses. PANCHO contacted family, ordered dami miguel and US of LE's. Upon recheck of b/l pedal pulses around 2100, faint pedal pulses noted w/ Doppler to b/l feet.
Patient remains intubated with #7.5 at 22, AC 400/40/16/5. Lung sounds with scattered coarse crackles. Bowel sounds hypoactive x4, patient with right nare dobhoff at 60cm. Patient has jaffe cath draining small amounts of clear, yellow urine. Core
temp monitoring via jaffe cath. Prophylactic foams intact to sacrum and b/l heels. Patient bathed with chg wipes, lotion applied to back, barrier cream to buttocks, sacrum. pt on amio/heparin/levo/vaso/adina/prop/fent. Will continue to monitor
patient closely.
[2025-03-03 23:07] LABS: Glucose - Point of Care 150 mg/dl (70-99)
[2025-03-03 23:26] LABS: APTT 74.2 Sec (23.4-35.0)
[2025-03-04] VITALS: BP 139/44
[2025-03-04] MEDS: HEPARIN 25000 UNITS/250 ML IV (00:05)
--- NOTE | 2025-03-04 00:27 | PTCARENOTE ---
Patient continues on all gtts, Rogers titrated back to 20mcg/hr as sbp 120's. Continues with weak b/l dp pulses with doppler. Will continue to monitor closely.
--- NOTE | 2025-03-04 01:03 | PTCARENOTE ---
Patient with 0ml urine output over past 2-3 hours. PANCHO Pacheco notified. Will continue to monitor.
[2025-03-04] MEDS: SUBLIMAZE 100 IV (01:39)
[2025-03-04 02:00] VITALS: BP 127/51
[2025-03-04] MEDS: SUBLIMAZE 50 MCG IV (02:42)
[2025-03-04] MEDS: LEVOPHED 258 MG IV ×3 (02:59→10:52)
[2025-03-04 03:52] LABS: B.E. -10.3 mmol/L; HCO3 16.2 mmol/L (21-28); O2 Saturation % 98.5 % (94-98); PCO2 37 mmHg (32-35); PO2 94 mmHg (83-108); pH 7.25 (7.35-7.45)
[2025-03-04 04:00] VITALS: BP 134/48
[2025-03-04 04:15] LABS: ALT (SGPT) 72 U/L (0-35); AST (SGOT) 105 U/L (14-36); Albumin 3.2 g/dl (3.5-5.0); Alkaline Phosphatase 66 U/L (38-126); Blood Urea Nitrogen 57 mg/dl (7-17); Calcium 8.7 mg/dl (8.4-10.2); Carbon Dioxide 18 mmol/L (22-30); Chloride 111 mmol/L (98-107); Estimated Creatinine Clearance 13 ml/min; Glucose 144 mg/dl (70-99); Magnesium 2.3 mg/dl (1.6-2.3); Potassium 5.8 mmol/L (3.5-5.1); Sodium 139 mmol/L (135-145); Total Bilirubin 1.4 mg/dl (0.2-1.3); Total Protein 5.5 g/dl (6.3-8.2); eGFR 18.61
[2025-03-04 04:37] LABS: Glucose - Point of Care 136 mg/dl (70-99)
[2025-03-04 04:42] LABS: % Basophils 0.1 % (0-2); % Immature Granulocytes 0.9 % (0-0.5); % Lymphocytes 5.7 % (20.5-51.1); % Monocytes 9.9 % (1.7-9.3); % Neutrophils 83.4 % (42.2-75.2); Absolute Immature Granulocytes 0.2 10^3/uL (0-0.05); Absolute Lymphocytes 1.5 10^3/uL (1.2-3.4); Absolute Monocytes 2.5 10^3/uL (0.1-0.6); Absolute Neutrophils 21.3 10^3/uL (1.4-6.5); Hematocrit 38.8 % (37.0-47.0); Mean Corp Hgb Conc. 33.5 g/dL (33.0-37.0); Mean Corpuscular Hgb 31.6 pg (27.0-31.0); Mean Corpuscular Volume 94.4 fL (81.0-99.0); Mean Platelet Volume 12.5 fL (7.4-10.4); Nucleated Red Blood Cells % 0 %; Platelet Count 204 10^3/uL (130-400); Red Blood Cell Count 4.11 10^6/uL (4.20-5.40); White Blood Cell Count 25.6 10^3/uL (4.8-10.8)
[2025-03-04 04:44] LABS: INR 1.23; PT 16.1 Sec (11.4-14.6)
[2025-03-04] MEDS: PITRESSIN 100 IV (04:47)
[2025-03-04 04:49] VITALS: BMI 26.5
[2025-03-04] MEDS: DEXTROSE 50% SYRINGE 25 GRAMS IV (04:54)
[2025-03-04] MEDS: SODIUM BICARBONATE 50 MEQ IV (04:54)
[2025-03-04] MEDS: NOVOLIN R 10 UNITS IV (04:54)
[2025-03-04 05:01] VITALS: BP 115/42
[2025-03-04 05:20] LABS: APTT 56.3 Sec (23.4-35.0)
[2025-03-04 05:58] LABS: Glucose - Point of Care 155 mg/dl (70-99)
[2025-03-04 06:07] LABS: Vancomycin Random 15.7 ug/ml
--- NOTE | 2025-03-04 06:34 | PTCARENOTE ---
Rhythm change noted. Amio gtt stopped, adina restarted for sbp 91. ASSIGNMENT EDITOR notified, EKG ordered and being completed now. Will notify oncoming rn.
[2025-03-04] MEDS: FLOVENT 220 MCG INHALER 4 PUFF INH (07:07)
[2025-03-04] MEDS: DUONEB 3 ML INH (07:07)
[2025-03-04 07:16] LABS: Glucose - Point of Care 103 mg/dl (70-99)
[2025-03-04] MEDS: NOVOLOG FLEXPEN-MODERATE RESISTANCE SC ×2 (07:16→11:05)
--- NOTE | 2025-03-04 07:59 | PTCARENOTE ---
Assumed care of pt. approx 0700.
Remains intubated/Sedated. See gtt flow sheets for sedation details RASS -1.
Rogers titrated off, remains maxed on norepi/vasopressin. Arterial line correlating w. NIBP, all titration metrics made off of arterial pressure measurements.
Pulses present in Pedis bilaterally. normothermic.
Amio titrated off per HS team due to arrhythmia, will review w. level vial marker during rounds today.
[2025-03-04 08:00] VITALS: BP 130/52
--- NOTE | 2025-03-04 08:16 | W.PN.INTV ---
Addendum entered and electronically signed by Ilan Hayes MD 03/05/25 05:57:
Add to diagnoses:
Metabolic encephalopathy
Addendum entered and electronically signed by Ilan Hayes MD 03/04/25 10:57:
Patient seen and examined independently by myself. Patient remains critically ill, on 2-3 pressors. Blood pressure is marginal at times, low-grade fevers noted. Remains on volume-cycled ventilation, metabolic acidemia noted. Patient remains
sedated with propofol/fentanyl. Amiodarone drip was discontinued overnight. Patient remains anuric. Hyperkalemia noted
AC 18/400/5/40%, plateau pressure 18
Chest exam with decreased breath sounds and mild wheeze but no significant rhonchi, no crepitus.
Regular rate rhythm, no obvious murmurs, abdominal exam soft, nontender
Dobbhoff tube in place
Trace edema
A-line
Data reviewed
ABG 7.25/37/94, consistent with metabolic acidemia
Unfortunately creatinine continues to rise, 2.5
Leukocytosis worsening
CXR with progressive bilateral pleural effusions, patchy infiltrate. ET tube appropriate. Right upper extremity PICC line
A/P
Unfortunate, patient developing renal failure
No urine output noted
Patient remains on norepinephrine at 30 mcg, vasopressin on and off Rogers-Synephrine
Dobbhoff tube in place
Had extensive discussion with family during rounds. is requesting withdrawal of care and comfort measures. Daughter also present
Reviewed clinical course at length. Daughter is familiar with clinical situation as she works in the [employer]
No other family available except grandchildren
Moving forward
We will assess sedation vacation later today and see how patient does, at which time we will assess mental status, ability to follow commands
For now continue with empiric antibiotics, cefepime/vancomycin
Dose appropriate for renal issues
Follow electrolytes, hyperkalemia
Reviewed with critical care nursing, respiratory care, pharmacy
Updated and daughter at length at bedside during rounds. All questions answered
TCCT 42 min
Original Note:
Today's Communication / Plan
Recommendations
Patient remains critically ill
Continue supportive care
Maintain MAP > 65; wean pressors as able
Continue heparin drip
Assessment
-
85-year-old female with history of lung cancer status post SBRT/chemotherapy, appears to be in remission, had enlarging lung nodule status post right thoracoscopy 2021, benign with history of radiation fibrosis, moderate COPD, coronary disease who
presents for 3 days of increased shortness of breath. Per ED records, patient appeared to be in respiratory distress, treated with nebulized therapy. CT chest obtained with IV contrast. Developed increased shortness of breath, given
nitroglycerin, then intubated, post intubation hypotension requiring norepinephrine. Admitted to ICU for further management 03/02/25
#Acute respiratory failure-- Intubated in the ED 03/02
#Acute hypoxic respiratory insufficiency, failed BiPAP; Subjective dyspnea x 3 days as outpatient
#Elevated troponin, abnormal EKG
#Atrial fibrillation with rapid ventricular response
#Hypotension; Cardiac versus sepsis
# Hyperglycemia; was initially hypoglycemia on arrival
#Bilateral patchy infiltrates; Pneumonia versus heart failure
Conditions present prior to admission
History of coronary disease, cardiac catheterization 2017 unremarkable
Cardiomyopathy, EF 45% per echo 2021
Bilateral pulmonary fibrosis
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
History of lung cancer (NSC) status post chemoradiation, SBRT 2019
Cancer free per outpatient records, follows [facility]; Lung nodule status post right thoracoscopy negative ()
Moderate COPD; On home oxygen, noncompliant
20 to 30 pound weight loss, intentional
Distant tobacco history, quit
Plan:
At this time, patient is critically ill
Intubated for increased respiratory distress post CT chest; no evidence of PE
Received aspirin in the ED, Currently on heparin therapy
Post intubation x-ray with increased bilateral patchy infiltrates
Cannot differentiate between heart failure and possible pneumonia
Diuresis limited due to new AVSHTI; creatinine worsening; family refused dialysis
Currently on 2 pressors Levophed at 30, vasopressin 0.04. Wean Levophed as able
Patient s/p bedside cardioversion currently in sinus rhythm
Echocardiogram at bedside revealed EF of approximately 27%, normal RV
Sepsis is also within the differential; WBC trending up
Lactate trending up
Empiric antibiotics for now. CT chest with airway narrowing likely from scarring although cannot assess chronicity at this time
Reasonable to cover respiratory infection with worsening pressor requirements at this time
Cannot confirm whether patient received steroids in the past but outpatient records suggest no steroids in the past year
If hypotension continues, will empirically start stress dose steroids
Presently no evidence of COPD exacerbation, chest exam is clear
Nebulized therapy
Potassium going up requiring insulin repeat potassium at 5 point
Maintain MAP>65
Replete electrolytes with K>4, Mg>2
Maintain euglycemia with goal BG 140-180
Discussed with family( and daughter) at bedside.
Data:
Abdominal ultrasound:
IMPRESSION:
Status post cholecystectomy with no evidence for biliary ductal dilation.
No focal abnormality of the liver.
Spleen and left kidney are unable to be adequately visualized. Pancreatic tail is not well seen.
Dense calcification from the abdominal aorta, limiting visualization of the posterior wall.
Small to moderate right pleural effusion is present.
Subjective Dataa
Subjective Data
Date of Service:
Date of Service: March 04, 2025
Chief Complaint: Information Systems Technician Follow Up
Subjective:
Patient seen evaluated in the a.m. currently on 2 pressor Levophed and vasopressin. Sedated and on vent with settings 18/400/40/5. Patient remains chronically ill
Review of Systems
General: Unobtainable - Sedation
Objective Data
Data Reviewed
Vital Signs / I&O / Oxygen:
Vital Signs
Temp Pulse Resp BP Pulse Ox
99.8 F 70 18 115/42 96
03/04/25 07:00 03/04/25 07:16 03/04/25 07:16 03/04/25 05:01 03/04/25 07:58
Intake and Output
03/03/25 03/04/25 03/05/25
06:59 06:59 06:59
Intake Total 2739.0 / 2841.3 2536.2 / 2642.5 189.9 / 189.9
Output Total 606 / 607 127 / 137 10 / 10
Balance 2133.0 / 2234.3 2409.2 / 2505.5 179.9 / 179.9
SaO2 [A/C] 96
SaO2 97
Nasal Cannula flow liters per 6
minute
Physical Exam
General: Other (Patient intubated)
Cardiovascular: Regular Rhythm
Respiratory: Non-Labored Respirations
Skin: Warm
Labs/Micro/Reports
Lab Data
03/04/25 03:42
03/04/25 07:04
Laboratory Results
03/03/25 03/03/25 03/03/25
09:08 16:34 23:05
PT
INR
APTT 127.8 H 121.3 H 74.2 H
pH
pCO2
pO2
HCO3
O2 Delivery Level
03/04/25
03:42
PT 16.1 H
INR 1.23
APTT 56.3 H
pH 7.25 L
pCO2 37 H
pO2 94
HCO3 16.2 L
O2 Delivery Level
Microbiology
03/02/25 14:31 Urine Urine Culture - Final
NO GROWTH
03/03/25 06:08 Nasal Swab Influenza Types A & B (ML) - Final
Negative for Influenza A & B, NAAT
Negative results must be combined with clinical observations
and patient history.
Nucleic Acid Amplification test (NAAT)performed on the
[employer] platform.
[2025-03-04 09:00] LABS: Glucose - Point of Care 104 mg/dl (70-99)
[2025-03-04] MEDS: PROTONIX IV 40 MG IV (09:36)
[2025-03-04] MEDS: MIRALAX 17 GRAMS TUBE (09:36)
[2025-03-04] MEDS: LOW STRENGTH ASPIRIN 81 MG TUBE (09:37)
[2025-03-04] MEDS: NSS (PRESERVATIVE FREE) 10 ML IV (09:37)
--- NOTE | 2025-03-04 09:50 | W.PN.NEPH.PH ---
Today's Communication / Plan
-
No dialysis per family. Lasix 60 mg IV x 1
Assessment/Plan
-
Impression:
VASHTI
Metabolic acidosis
VDRF
Presentation with hypercapnic respiratory failure and hemodynamic collapse
Elevated troponin
Cardiomyopathy with known history of congestive heart failure now with EF ~25%
New onset A-fib status post cardioversion on admission
Bilateral pulmonary fibrosis
History of lung cancer non-small cell carcinoma
Moderate COPD
Diabetes
Plan:
VASHTI:
-Likely precipitated by strong prerenal stimulus in setting of hemodynamic instability and administration of IV contrast from CT of chest
-Urine output dropping
-Maintain Dooley catheter
-Maintain pressor support to keep MAP 65 or greater to augment renal perfusion ( 3 pressor support)
Patient is an uric essentially.
Worsening creatinine and hyperkalemia.
Discussed with her and her daughter about renal prognosis and likelihood that she would need hemodialysis.
The patient and the family would not want dialysis so therefore medical management.
Will give 60 mg IV Lasix to help facilitate urine output
Total Time Spent with Patient (in minutes): 35
-
-
Date of Service: March 04, 2025
CC / HPI / ROS
-
Patient intubated agitated at worsening renal function and uric.
Unable to assess review of systems.
Labs
-
Labs:
WBC 25.6 10^3/uL (4.8-10.8) H 03/04/25 03:42
RBC 4.11 10^6/uL (4.20-5.40) L 03/04/25 03:42
Hgb 13.0 g/dL (12.0-16.0) 03/04/25 03:42
Hct 38.8 % (37.0-47.0) 03/04/25 03:42
Plt Count 204 10^3/uL (130-400) 03/04/25 03:42
Sodium 139 mmol/L (135-145) 03/04/25 03:42
Potassium 5.0 mmol/L (3.5-5.1) 03/04/25 07:04
Chloride 111 mmol/L (98-107) H 03/04/25 03:42
Carbon Dioxide 18 mmol/L (22-30) L 03/04/25 03:42
BUN 57 mg/dl (7-17) H 03/04/25 03:42
Creatinine 2.5 mg/dL (0.6-1.0) H 03/04/25 03:42
eGFR 18.61 03/04/25 03:42
Glucose 144 mg/dl (70-99) H 03/04/25 03:42
Calcium 8.7 mg/dl (8.4-10.2) 03/04/25 03:42
Vvh-I-Vfminknsucw Pept 07233 pg/ml 03/02/25 08:42
Albumin 3.2 g/dl (3.5-5.0) L 03/04/25 03:42
Physical Exam
-
Vital Signs:
Vital Signs
Temp Pulse Resp BP Pulse Ox
99.4 F 78 18 130/52 97
03/04/25 08:00 03/04/25 09:00 03/04/25 09:00 03/04/25 08:00 03/04/25 09:00
Respiratory:: Bilateral: Coarse
Lung Excursion:: Normal
Abdomen:: Soft
Bowel Sounds:: Normal
Extremity Edema:: None: Bilateral:
--- NOTE | 2025-03-04 10:02 | W.PN.HOSP.TC ---
Today's Communication/Plan
-
Family requesting extubation without re-entubation
WOrsening renal function
COnt heparin and Abx
Amio stopped overnight - defer decision to restart to cardio
still on 3 pressors
Assessment / Plan
Assessment / Plan
85yo F with PMHx of CAD, HFmrEF, pulmonary HTN, gout, COPD, DM, HTN, lung CA lst chemo 2 years ago, Hx of brain lesions s/p Cyberknife (PET in Oct 2024 - No suspicious FDG-avid lesions.) brought with gradual worsening of SOB for few days, after CT
developed rapidly progressive hypoxia unresponsive to NIV in ED and was intubated on 03/02/25. Managed for acute pulmonary edema, NSTEMI, Afib and shock with multiorgan failure which limited medical mgmt. Eventually family decided for extubation sinc
epatient seemed to be very agitated while on ventilator and will start DNR after extubation.
A/P:
#NSTEMI with PMHx of CAD
#Acute hypoxic hypercapnic respiratory failure 2/2 acute on chronic HFmrEF exacerbation cannot exclude allergic reaction to the contrast
#New onset Afib with RVR
Heparin drip
No obvious ST elevation on EKG
serial troponin downtrending
ASA load and daily
lipitor
BB when BP improves
Cardiology consult: s/p CV on 03/02/25 with return of the sinus rhythm
Echo: global hypokinesis, EF 30%, moderate MR and TR with elevated pulmonary pressure, b/l pleural effusions
Diuresis as able (limited by new VASHTI) Follow Cr and electrolytes
Vent mgmt as per Fire Alarm Dispatcher
As per cath in 2018: Stable coronary anatomy with chronic total occlusion of a large obtuse marginal branch, Mildly reduced LVEF visually estimated at 40-45%
COVID-19 and influenza PCR neg
#VASHTI
2/2 shock and hypoxia cannot wexclude RANDEE component
Nephro consult: avoid hydration, but also hold off diuresis with oliguria
#Minimal bilirubinemia
#transaminitis
possible ischemic hepatitis
follow LFT, INR
US RUQ
LDH mildly elevated
Hepatitis panel pending
#Shock, unspecified
Worsening pressor requirements: on 3 pressors as of 03/03/25
Empiric broad Abx coverage
Follow Bcx
Afebrile with mild leukocytosis after dose of steroids
ICU
CTA chest without pulmonary embolism or pneumonia
UA with some leukocyte esterase but no pyuria, pending Ucx
With significant pulmonary changes - reasonable to cover for respiratory infection with worsening pressor requirements
follow lactate
#DM type 2 on insulin with hypoglycemia on admission
Insulin SS, might need drip
TSH WNL
#COPD, not in exacerbation
no wheezing
cont bronchodilators
#HLD
#gout
#Essential HTN
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
cont current meds when acute issue resolve and BP improves
DVT ppx on hep drip
full code
I have spent at least 78min of critical care time reviewing chart, test results, communication with consultants and providing direct patient care
Anticipated Discharge: > 48 hours
Subjective/Interval History
-
Date of Service: March 04, 2025
Objective Data
-
Labs:
Laboratory Results
03/03/25 03/04/25 03/04/25
23:05 03:42 07:04
WBC 25.6 H
Hgb 13.0
Hct 38.8
Plt Count 204
PT 16.1 H
INR 1.23
APTT 74.2 H 56.3 H
HCO3 16.2 L
Sodium 139
Potassium 5.8 H 5.0
Chloride 111 H
Carbon Dioxide 18 L
BUN 57 H
Creatinine 2.5 H
Glucose 144 H
Calcium 8.7
Total Bilirubin 1.4 H
AST 105 H
ALT 72 H
Alkaline Phosphatase 66
03/04/25
11:30
WBC
Hgb
Hct
Plt Count
PT
INR
APTT Pending
HCO3
Sodium
Potassium
Chloride
Carbon Dioxide
BUN
Creatinine
Glucose
Calcium
Total Bilirubin
AST
ALT
Alkaline Phosphatase
Vital Signs:
Vital Signs
Temp Pulse Resp BP Pulse Ox
99.4 F 78 18 130/52 97
03/04/25 08:00 03/04/25 09:00 03/04/25 09:00 03/04/25 08:00 03/04/25 09:00
I&O
03/03/25 03/04/25 03/05/25
06:59 06:59 06:59
Intake Total 2739.0 / 2841.3 2536.2 / 2642.5 357.1 / 357.1
Output Total 606 / 607 127 / 137 10 / 10
Balance 2133.0 / 2234.3 2409.2 / 2505.5 347.1 / 347.1
Physical Exam
-
General: Intubated
HEENT: Moist Mucous Membranes
Respiratory: Clear to Auscultation
Cardiac: Regular Rhythm
Neuro: Awake
Psych: Agitated
[2025-03-04] MEDS: LASIX 80 MG IV (10:06)
--- NOTE | 2025-03-04 10:11 | W.PN.CARDCBS ---
Today's Communication / Plan
-
Remains in sinus rhythm.
IV amiodarone discontinued by nursing on 03/04
Continue IV heparin
Extubation be considered with possible plans to not reintubate if fails
Creatinine continues to worsen and family has declined dialysis
Continue antibiotics for sepsis
Remains on 2 pressors
Overall prognosis very poor
Impression / Plan
-
PCP: Vilma DELEON
Card: Dr. Taylor, last seen 02/14/22
Impression:
Admitted with respiratory failure and rapid Afib 03/02/25 s/p urgent CV
Acute hypoxic respiratory failure
Unsuccessful attempted BiPAP
Intubated
Newly diagnosed paroxysmal atrial fibrillation of unclear duration with RVR
Elevated troponin/Nstemi
Hypotension and shock
Possible PNA
Acute HFrEF
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
NSCLC, previous chemotherapy and radiation
s/p PET new left upper lobe groundglass opacity, but no other metastatic disease 10/14/2024
ECHO 2018: Mid and distal lateral inferolateral A/dyskinesis, EF 40% mild MR, borderline dilated left atrium, right heart normal aortic valve
Echo 03/06/22: EF 45 to 50%, mid to distal inferolateral and lateral apical akinesis, stage I diastolic dysfunction, mild MR
Echo 03/02/25: Final report pending, preliminarily EF 30% with PAP 40 mmHg
Plan:
She remains intubated with plans to extubate later today and possibly not reintubate if she fails
She remains in sinus rhythm status post urgent cardioversion
IV amiodarone was discontinued by nursing on 03/04
Remains on IV heparin
Remains on phenylephrine and vasopressin for refractory hypotension
Continue treatment for sepsis
Troponin peaked at 5. Possible non-STEMI versus nonischemic myocardial injury. Will continue IV heparin, aspirin, and atorvastatin. She has CAD with h/o 100% OM1 occlusion with collaterals by cath 2009. Would be reasonable to consider cardiac
cath this hospitalization with ejection fraction reduced to 30% and troponin of 5 if she were to stabilize. For now continue conservative therapy. However renal insufficiency prevents cardiac catheterization
Renal function continues to worsen and family has declined dialysis.
Discussed with patient's in detail at bedside as well as sports equipment repairer and primary service by Celeste text
Overall prognosis remains very poor
CC time 32min
Progress Note - Clerical Clerk
Subjective
Date of Service: March 04, 2025
She remains intubated and no response to questions
Objective
Labs:
03/04/25 03:42
03/04/25 07:04
Labs
Hgb 13.0 g/dL (12.0-16.0) 03/04/25 03:42
Hct 38.8 % (37.0-47.0) 03/04/25 03:42
Plt Count 204 10^3/uL (130-400) 03/04/25 03:42
PT 16.1 Sec (11.4-14.6) H 03/04/25 03:42
INR 1.23 03/04/25 03:42
APTT 56.3 Sec (23.4-35.0) H 03/04/25 03:42
Sodium 139 mmol/L (135-145) 03/04/25 03:42
Potassium 5.0 mmol/L (3.5-5.1) 03/04/25 07:04
BUN 57 mg/dl (7-17) H 03/04/25 03:42
Creatinine 2.5 mg/dL (0.6-1.0) H 03/04/25 03:42
Glucose 144 mg/dl (70-99) H 03/04/25 03:42
Troponins
03/02/25 03/02/25 03/02/25
08:42 14:00 17:55
Troponin I 5.170 H* 5.240 H* 4.550 H*
03/03/25
00:18
Troponin I 4.430 H*
Vital Signs and I&O:
Vital Signs
Temp Pulse Resp BP Pulse Ox
99.4 F 84 18 128/52 97
03/04/25 08:00 03/04/25 10:06 03/04/25 09:00 03/04/25 10:06 03/04/25 09:00
Vital Signs
Temp Pulse Resp BP Pulse Ox
99.4 F 84 18 128/52 97
03/04/25 08:00 03/04/25 10:06 03/04/25 09:00 03/04/25 10:06 03/04/25 09:00
Intake & Output
03/02/25 03/03/25 03/04/25 03/05/25
06:59 06:59 06:59 06:59
Intake Total 2739.0 / 2841.3 2536.2 / 2642.5 357.1 / 357.1
Output Total 606 / 607 127 / 137 10
Balance 2133.0 / 2234.3 2409.2 / 2505.5 347.1 / 347.1
Physical Exam
Physical Exam
General: Intubated and unresponsive
Neck: Supple, no JVD, HJR, carotids +2 B/L, no bruits bilaterally.
Heart: Non displaced PMI, RRR, no murmurs, No S3, S4, no rubs.
Lungs: Scattered rhonchi throughout
Extremities: No clubbing, cyanosis or edema bilaterally.
Neuro: Grossly nonfocal, awake, alert and oriented x3.
[2025-03-04 10:24] VITALS: PULSE 2; PULSE 85
--- NOTE | 2025-03-04 10:27 | W.PN.UPDATE ---
Addendum entered and electronically signed by Ilan Hayes MD 03/04/25 14:52:
Evaluated again off BiPAP
Multiple family members at bedside
Patient appears to be comfortable
Continue with morphine, Ativan as needed
For transfer to [facility]
Emotional support provided to family
We will sign off. Please call with questions
Addendum entered and electronically signed by Ilan Hayes MD 03/04/25 12:45:
Reval pt multiple times over past few hours
Appears comfortable but remains unresponsive to stimuli
spontaneously breathing ON BIPAP
Daughter, , gs at [facility] [facility]. requesting transition to comfort
reviewed process
dc all meds/gtts
morphine prn
will dc bipap as well
updated primary srevice
rev with ccn
Original Note:
Update Note
Progress Note Update
Reevaluated patient with family at bedside
Patient intermittently agitated, sitting bolt upright, thrashing arms, remains in restraints
Family witnessing, prefers that patient is made comfortable
They confirmed that she would not want to be on the ventilator
would like to transition to comfort, especially if does not wake up
Moving forward
Decision was made to extubate at family request
Patient extubated to BiPAP. She appeared more comfortable, but still intermittently agitated
She does open eyes, turns head but does not follow commands
Given agitation, given 1 dose of Ativan 1 mg and maintain on BiPAP
Pressors continued, medications continued
Reviewed again with family
They would prefer to continue with focusing on comfort
We will see how she does in the next 1 to 2 hours. If she is requiring frequent Ativan, morphine for comfort secondary to agitation, respiratory distress, we will transfer to comfort measures
If she is able to wake up, follow commands, not appropriately, we may be able to continue to 'thread the needle' with supportive care and comfort as needed
However I suspect that patient will continue to develop worsening acidemia given respiratory status, renal status
Family is aware (daughter and )
Patient is DNR
We will continue to follow closely and transition as appropriate as comfort is a priority
Reviewed at length with multiple providers involved
Reviewed with critical care nursing
Emotional support provided with and daughter at bedside
TCCT 36 min
[2025-03-04] MEDS: ATIVAN 1 MG IV (10:32)
[2025-03-04] MEDS: NSS (PRESERVATIVE FREE) 0.5 ML IV (10:33)
--- NOTE | 2025-03-04 10:33 | PTCARENOTE ---
Discussion with Daughter and bedside w. tub wash operator.
Pt. extubated to Bipap.
[2025-03-04] MEDS: MAXIPIME IV (10:55)
[2025-03-04] MEDS: STERILE WATER FOR INJECTION IV (10:55)
[2025-03-04] MEDS: DUONEB INH (11:00)
[2025-03-04 11:01] LABS: Glucose - Point of Care 108 mg/dl (70-99)
[2025-03-04 11:23] LABS: APTT 66.2 Sec (23.4-35.0)
--- NOTE | 2025-03-04 11:57 | PN.CDI ---
CDI
- -
CDI:
Physician Documentation Request
Admit Date: 03/02/25 12:12
Dear Doctor,
Please review the following and provide your response in the progress notes.
Clinical Indicators:
Pt admitted with NSTEMI /Acute on chronic systolic CHF /Acute Hypoxic/Hypercapnic Respiratory Failure /Now possible sepsis and pneumonia
Documented per update note , ' Patient intermittently agitated, sitting bolt upright, thrashing arms, remains in restraints..Patient extubated to BiPAP. She appeared more comfortable, but still intermittently agitatedShe does open eyes, turns head
but does not follow commands...Given agitation, given 1 dose of Ativan 1 mg and maintain on BiPAP..'
Based on the above, could you clarify in the Progress Notes and Discharge Summary which, if any of the following, is the most likely etiology of the confusion/altered mental status.
Toxic Metabolic Encephalopathy
Metabolic Encephalopathy
Agitation only
Other ( please specify)
Use of terms such as suspected, likely, concern for, or probable (associated with a specific diagnosis that is being evaluated, monitored, or treated as if it exists) are acceptable and can be coded in the inpatient setting, when documented at the
time of discharge.
Thank you,
Jenifer Oconnor RN
CDI Specialist
[facility]
Please use your independent medical judgment in providing your response.
[2025-03-04 12:08] LABS: Glucose - Point of Care 100 mg/dl (70-99)
--- NOTE | 2025-03-04 12:15 | CM ---
Addendum entered by Rodo Mixon 03/04/25 16:12:
Pt transitioned to comfort care and .
Emotional support provided to pt's family.
Original Note:
CM following re: discharge planning.
Discussed in Rounds, reviewed pt's chart, met with pt.
Per Rounds meeting pt remains intubated, remains critically ill, continue supportive care.
Pt lives with 2SH, 2 steps to enter and pt is independent in all areas TECHNICAL AID.
D/C plan: uncertain at this time and will depend on pt's progress.
CM will follow with discharge plan updates as hospitalization progresses
--- NOTE | 2025-03-04 12:47 | PTCARENOTE ---
Discussion w. Family Daughter and bedside w. Atomic Physics Professor, [facility] nursing.
Decision made to go comfort.
All vasopressor medications stopped per order.
[2025-03-04] MEDS: MORPHINE SULFATE 2 MG IV (13:03)
--- NOTE | 2025-03-04 15:32 | PTCARENOTE ---
pt. asystole on monitor, no pulse palpated.
Hospitalist notified for pronouncement.
--- NOTE | 2025-03-04 15:47 | W.PN.DEATH ---
Addendum entered and electronically signed by Juanjose Paulino MD 03/04/25 16:55:
Time of 1530
Original Note:
Pronouncement of
-
Called to see patient to pronounce.
No spontaneous heart tones or respirations noted.
Patient not responsive to verbal stimuli.
Patient is pronounced .
Time of : 15:00
Date of : 03/04/25
Cause of : Cardiogenic shock
Family Notified: Yes
--- NOTE | 2025-03-04 15:50 | W.DCSUMMARY ---
Discharge Summary
Discharge Data
Date of Admission: 03/02/25
Date of Discharge: 03/04/25
-
Pending Results: No
Hospital Course
85yo F with PMHx of CAD, HFmrEF, pulmonary HTN, gout, COPD, DM, HTN, lung CA lst chemo 2 years ago, Hx of brain lesions s/p Cyberknife (PET in Oct 2024 - No suspicious FDG-avid lesions.) brought with gradual worsening of SOB for few days, after CT
developed rapidly progressive hypoxia unresponsive to NIV in ED and was intubated on 03/02/25. Managed for acute pulmonary edema, NSTEMI, Afib and shock with multiorgan failure which limited medical mgmt. Eventually family decided for extubation since
patient seemed to be very agitated while on ventilator and will start DNR after extubation. Eventually due to worsening of distress family opted to comfort care as per discussion with technical solutions consultant and withdrawal of active medcial mgmt. Patient
on 03/04/25 at 1530 with the family bedside
I have spent at least 78min of critical care time reviewing chart, test results, communication with consultants and providing direct patient care
Patient was managed for:
#NSTEMI with PMHx of CAD
#Acute hypoxic hypercapnic respiratory failure 2/2 acute on chronic HFmrEF exacerbation cannot exclude allergic reaction to the contrast
#New onset Afib with RVR
#VASHTI
#Minimal bilirubinemia
#transaminitis
#Shock, possible cardiogenic
#DM type 2 on insulin with hypoglycemia on admission
#COPD, not in exacerbation
#HLD
#gout
#Essential HTN
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
Discharge Plan
-
Patient Disposition:
Date/Time
Date/Time: 03/04/25 15:30
Discharge Date and Time
Print Language: NAMIBIAN
--- NOTE | 2025-03-04 16:03 | PTCARENOTE ---
[facility] contacted, pt. deemed not a candidate due to age, form placed in pt. chart.
Family provided w. information regarding home process.
== END 2025-03-04 15:00 | disposition expired | DRG 208 ==
LOC: ICU 12:12
PROVIDERS: Internal Medicine Interventional Cardiology; Nurse Practitioner Family; Nurse Practitioner Primary Care; Physician Assistant; ADMITTING PHYSICIAN Internal Medicine; CONSULT PHYSICIAN Internal Medicine Cardiovascular Disease; CONSULT PHYSICIAN Internal Medicine Critical Care Medicine; CONSULT PHYSICIAN Specialist; EMERGENCY PHYSICIAN Student in an Organized Health Care Education/Training Program; FAMILY PHYSICIAN Internal Medicine
PROC: 5A2204Z Restoration of Cardiac Rhythm, Single (ICD-10-PCS; 2025-03-02)
PROC: 5A1945Z Respiratory Ventilation, 24-96 Consecutive Hours (ICD-10-PCS; 2025-03-02)
DX: J96.01 Acute respiratory failure with hypoxia (principal); I50.23 Acute on chronic systolic (congestive) heart failure; I21.4 Non-ST elevation (NSTEMI) myocardial infarction; G93.41 Metabolic encephalopathy; A41.9 Sepsis, unspecified organism; N17.9 Acute kidney failure, unspecified; E87.20 Acidosis, unspecified; I42.8 Other cardiomyopathies; Z87.891 Personal history of nicotine dependence; J96.02 Acute respiratory failure with hypercapnia; R57.0 Cardiogenic shock; I11.0 Hypertensive heart disease with heart failure; E11.649 Type 2 diabetes mellitus with hypoglycemia without coma; Z79.4 Long term (current) use of insulin; J44.9 Chronic obstructive pulmonary disease, unspecified; M10.9 Gout, unspecified; Z79.01 Long term (current) use of anticoagulants; Z11.52 Encounter for screening for COVID-19; E78.00 Pure hypercholesterolemia, unspecified; Z85.118 Personal history of other malignant neoplasm of bronchus and lung; I48.0 Paroxysmal atrial fibrillation; J84.10 Pulmonary fibrosis, unspecified; Z51.5 Encounter for palliative care; E87.5 Hyperkalemia; I27.20 Pulmonary hypertension, unspecified; Z66 Do not resuscitate; Z79.82 Long term (current) use of aspirin; Z79.899 Other long term (current) drug therapy; Z87.01 Personal history of pneumonia (recurrent); Z91.199 Patient's noncompliance with other medical treatment and regimen due to unspecified reason; Z92.21 Personal history of antineoplastic chemotherapy; Z92.3 Personal history of irradiation
CPT/HCPCS: 31500; 36600; 71045; 71046; 71275; 74018; 76700; 80053; 80061; 80202; 81003; 81015; 82248; 82330; 82805; 82962; 83036; 83605; 83615; 83735; 83880; 84132; 84302; 84443; 84478; 84484; 85025; 85027; 85045; 85610; 85730; 86704; 86706; 86803; 87040; 87086; 87340; 87502; 87641; 87811; 93005; 93306; 94002; 94003; 94640; 94660; 96365; 96367; 96375; 99291; Q9967